=== PATIENT | female | born 1990 | race Caucasian/White ===

== ENCOUNTER 2016-04-07 20:30 | Emergency (ER) | payer OTHER, SELFPAY ==
[2016-04-07] MEDS ORDERED: KETOROLAC 30 MG/ML VIAL (J1885) As Ordered ONE (21:52)
[2016-04-07] MEDS ORDERED: METOCLOPRAMIDE INJ 10MG/2ML VIAL (J2765) As Ordered ONE (21:52)
[2016-04-07 21:58] LABS: BASO % 0.3 % (0.0-1.0); EOS # 0.1 K/mm3 (0.0-0.50); EOS % 1.4 % (0.0-3.0); LARGE UNSTAINED CELL # 0.2 K/mm3 (0.0-0.4); LARGE UNSTAINED CELL % 2.2 % (0.0-4.0); LYMPH # 2.7 K/mm3 (1.5-6.5); MEAN CORPUSCULAR HEMOGLOBIN 25.7 pg (27.0-33.0); MEAN CORPUSCULAR HGB CONC 32.2 g/dl (32.0-36.5); MEAN CORPUSCULAR VOLUME 79.8 fl (80.0-96.0); MONO # 0.4 K/mm3 (0.0-0.8); MONO % 4.4 % (0.0-5.0); NEUTROPHILS # 5.8 K/mm3 (1.8-7.7); NEUTROPHILS % 62.8 % (36.0-66.0); PLATELET COUNT, AUTOMATED 227 k/mm3 (150-450); RED CELL DISTRIBUTION WIDTH 15.5 % (11.5-14.5); WHITE BLOOD COUNT 9.3 K/mm3 (4.0-10.0)
[2016-04-07 22:05] LABS: INR 1.05
[2016-04-07 22:26] LABS: ALBUMIN 3.8 GM/DL (3.2-5.2); ALBUMIN/GLOBULIN RATIO 0.95 (1.00-1.93); ALKALINE PHOSPHATASE 84 U/L (45-117); ALT/SGPT 24 U/L (12-78); AMYLASE 43 U/L (25-115); ANION GAP 9 MEQ/L (8-16); AST/SGOT 16 U/L (15-37); BILIRUBIN,DIRECT < 0.1 MG/DL (0.0-0.2); BILIRUBIN,TOTAL 0.2 MG/DL (0.2-1.0); BLOOD UREA NITROGEN 12 MG/DL (7-18); CALCIUM LEVEL 8.4 MG/DL (8.5-10.1); CARBON DIOXIDE LEVEL 24 MEQ/L (21-32); CHLORIDE LEVEL 109 MEQ/L (98-107); CREATININE FOR GFR 0.75 MG/DL (0.55-1.02); GLOMERULAR FILTRATION RATE > 60.0 (>60); GLUCOSE, FASTING 95 MG/DL (70-105); POTASSIUM SERUM 4.1 MEQ/L (3.5-5.1); SODIUM LEVEL 142 MEQ/L (136-145); TOTAL PROTEIN 7.8 GM/DL (6.4-8.2)
--- NOTE | 2016-04-07 23:28 | EDDOCDS ---
Nurse's Notes [facility] Name: Amelia Castorena Age: 25 yrs Sex: Female : 1990 Arrival Date: 04/07/2016 Time: 20:30 Bed 14 Private MD: Willie Rodriguez Diagnosis: Abdominal and pelvic pain;Chest pain, unspecified Presentation: 04/07 20:36 Presenting complaint: Patient states: chest pain and abdominal pain for 3 weeks on and rs3 off. headache for a month. had been taking Excedrin. symptoms not resolved. Risk factors: the patient reports no vaginal bleeding. Adult Sepsis Screening: The patient does not have new or worsening altered mentation. Patient's respiratory rate is less than 22. Systolic blood pressure is greater than 100. Adult Sepsis Screening: Patient has a qSOFA score of 0- Negative Sepsis Screen. Suicide/Homicide risk assessment- the patient denies having any suicidal and/or homicidal ideations and does not present with any other emotional, behavioral or mental health complaints. 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 Transition of care: patient was not received from another setting of care. 20:36 Acuity: LYNETTE Level 3 rs3 20:36 Method Of Arrival: Walkin/Carried/Asstd rs3 Triage Assessment: 20:39 General: Appears in no apparent distress. Pain: Location: abdomen. HIV screening NA for rs3 this visit Offered previously. GI: Reports lower abdominal pain, upper abd pain. 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 none - PMHx: GERD; - PSHx: Cholecystectomy; Cesearean Section; Tubal ligation; oral surgery; - Social history: Smoking status: Patient states was never smoker of tobacco. No barriers to communication noted, The patient speaks fluent Palauan. - Family history: Not pertinent. - : The pt / caregiver states he / she is not on anticoagulants. Home medication list is obtained from the patient. - Exposure Risk Screening:: None identified. Screenin:26 Screening information is obtained from the patient. Fall risk: No risks identified. tm5 Assistance ADL's: requires no assistance with activities of daily living. Abuse/DV Screen: The patient / caregiver reports he/she is: not in a situation that causes fear, pain or injury. Nutritional screening: No deficits noted. Advance Directives: Currently, there is no health care proxy. There is no active DNR order. home support is adequate. Assessment: 22:17 Adult Sepsis Screening: The patient does not have new or worsening altered mentation. lf1 Patient's respiratory rate is less than 22. Systolic blood pressure is greater than 100. Patient has a qSOFA score of 0- Negative Sepsis Screen. General: Appears in no apparent distress, Behavior is cooperative. Pain: Location: abdomen Pain currently is 6 out of 10 on a pain scale. Neurological: Level of Consciousness is awake, alert, Oriented to person, place, time. EENT: No deficits noted. Respiratory: Respiratory effort is even, unlabored, Breath sounds are clear bilaterally. GI: Abdomen is obese, Bowel sounds present X 4 quads. Abd is soft and non tender Abd is non tender. Derm: Skin is normal. 23:26 Reassessment: Patient appears in no apparent distress at this time. Patient denies pain tm5 at this time. Patient states feeling better. Patient states symptoms have improved. Vital Signs: 20:32 BP 144 / 64; Pulse 77; Resp 18 S; Temp 96.3(O); Pulse Ox 100% on R/A; Weight 90.72 kg gr2 (R); Height 5 ft. 2 in. (157.48 cm) (R); Pain 5/10; 21:50 BP 131 / 84 (auto/); lf1 21:53 Pulse 72 MON; Pulse Ox 98% ; lf1 22:05 BP 132 / 79 (auto/); lf1 22:05 Pulse 72 MON; Pulse Ox 99% ; lf1 22:17 Pulse 70 MON; Resp 18; Pulse Ox 99% ; Pain 6/10; lf1 23:26 BP 120 / 68; Pulse 81; Resp 20; Temp 98.3(O); Pulse Ox 96% on R/A; Pain 0/10; tm5 20:32 Body Mass Index 36.58 (90.72 kg, 157.48 cm) gr2 Vitals: 20:32 Log In Time: April 07, 2016 at 20:32. gr2 ED Course: 20:32 Patient visited by Abida Bloom. gr2 20:32 Willie Rodriguez is Private Physician. gr2 20:32 Patient moved to Waiting gr2 20:33 Patient visited by Abida Bloom. gr2 20:33 Patient moved to Pre RCE gr2 20:38 Triage Initiated rs3 20:49 Shannon Paz,JULIA is Primary Nurse. ld5 20:49 Dev[facility] Solares [facility]NP [facility]. ke 20:49 Patient visited by Devendra Solares FNP. ke 20:49 Patient visited by Devendra Solares FNP. ke 20:49 Patient moved to 14 ld5 21:44 Patient visited by Priti Garrido RN. lf1 21:44 Inserted saline lock: 20 gauge in right forearm and blood collected. The patient lf1 tolerated the procedure well. Labs drawn. (by ED staff). Sent per order to lab. 21:44 Missed attempts: 20 gauge X 1 in left forearm. lf1 21:45 Amylase Sent. lf1 21:45 Basic Metabolic Profile Sent. lf1 21:45 CBC with Diff Sent. lf1 21:45 Cardiac Injury Profile Sent. lf1 21:45 Lipase Sent. lf1 21:45 Liver Profile Sent. lf1 21:45 Prothrombin Time Profile\E\INR Sent. lf1 21:45 Troponin Sent. lf1 21:49 EKG done. (by ED staff). Reviewed by Devendra TANNER. jmv 21:50 Patient visited by Ryland Altamirano PCA. jmv 21:54 Patient visited by Ryland Altamirano PCA. jmv 21:54 Pt greeted and oriented to ED. Patient advised of names of staff involved in care, [facility] location of call [place], wait times and NPO status. Accompanied by Significant Other, Patient has correct armband on for positive identification. Placed in gown. Bed in low position. Call light in reach. Side rails up X2. water treatment specialist on. Pulse ox on. NIBP on. 22:20 Patient visited by Priti Garrido RN. lf1 22:42 Willie Rodriguez is Referral Physician. ke 22:45 Primary Nurse role handed off by Shannon Paz,JULIA mcp 22:53 [facility] Payment Agreement was scanned into [employer] and attached to record. zo 23:26 Patient visited by Corine Pratt RN. tm5 23:26 The patient / caregiver is instructed regarding the plan of care and ED course. tm5 23:26 Discontinued lock intact, bleeding controlled, pressure dressing applied, No tm5 redness/swelling at site. No procedures done that require assistance. Administered Medications: 22:06 Drug: NS 0.9% 1000 ml [sodium chloride 0.9 % intravenous solution] Route: IV; Rate: tm5 bolus; Site: right forearm; 22:06 Drug: Metoclopramide 10 mg [metoclopramide 5 mg/mL injection solution] Route: IV; Rate: tm5 40 mg/hr; Infused Over: 15 mins; Site: right forearm; 22:07 Drug: ketorolac 30 mg [ketorolac 30 mg/mL (1 mL) injection solution (1 mL)] Route: IVP; tm5 Site: right forearm; Order Results: Lab Order: Amylase; SPEC'M 04/07/16 21:43 Test: AMYLASE; Value: 43; Range: 25-115; Units: U/L; Status: F Lab Order: Basic Metabolic Profile; SPEC'M 04/07/16 21:43 Test: GLUCOSE, FASTING; Value: 95; Range: 70-105; Units: MG/DL; Status: F Test: BLOOD UREA NITROGEN; Value: 12; Range: 7-18; Units: MG/DL; Status: F Test: CREATININE FOR GFR; Value: 0.75; Range: 0.55-1.02; Units: MG/DL; Status: F Test: GLOMERULAR FILTRATION RATE; Value: > 60.0; Range: >60; Status: F Test: SODIUM LEVEL; Value: 142; Range: 136-145; Units: MEQ/L; Status: F Test: POTASSIUM SERUM; Value: 4.1; Range: 3.5-5.1; Units: MEQ/L; Status: F Test: CHLORIDE LEVEL; Value: 109; Range: 98-107; Abnormal: Above high normal; Units: MEQ/L; Status: F Test: CARBON DIOXIDE LEVEL; Value: 24; Range: 21-32; Units: MEQ/L; Status: F Test: ANION GAP; Value: 9; Range: 8-16; Units: MEQ/L; Status: F Test: CALCIUM LEVEL; Value: 8.4; Range: 8.5-10.1; Abnormal: Below low normal; Units: MG/DL; Status: F Test Note: ; Units are mL/min/1.73 m2 Chronic Kidney Disease Staging per NKF: Stage I & II GFR >=60 Normal to Mildly Decreased Stage III GFR 30-59 Moderately Decreased Stage IV GFR 15-29 Severely Decreased Stage V GFR <15 Very Little GFR Left ESRD GFR <15 on CALENDER MACHINE OPERATOR Lab Order: CBC with Diff; PANFILO'Ruben 04/07/16 21:43 Test: WHITE BLOOD COUNT; Value: 9.3; Range: 4.0-10.0; Units: K/mm3; Status: F Test: RED BLOOD COUNT; Value: 4.66; Range: 4.00-5.40; Units: M/mm3; Status: F Test: HEMOGLOBIN; Value: 12.0; Range: 12.0-16.0; Units: g/dl; Status: F Test: HEMATOCRIT; Value: 37.2; Range: 36.0-47.0; Units: %; Status: F Test: MEAN CORPUSCULAR VOLUME; Value: 79.8; Range: 80.0-96.0; Abnormal: Below low normal; Units: fl; Status: F Test: MEAN CORPUSCULAR HEMOGLOBIN; Value: 25.7; Range: 27.0-33.0; Abnormal: Below low normal; Units: pg; Status: F Test: MEAN CORPUSCULAR HGB CONC; Value: 32.2; Range: 32.0-36.5; Units: g/dl; Status: F Test: RED CELL DISTRIBUTION WIDTH; Value: 15.5; Range: 11.5-14.5; Abnormal: Above high normal; Units: %; Status: F Test: PLATELET COUNT, AUTOMATED; Value: 227; Range: 150-450; Units: k/mm3; Status: F Test: NEUTROPHILS %; Value: 62.8; Range: 36.0-66.0; Units: %; Status: F Test: LYMPH %; Value: 29.0; Range: 24.0-44.0; Units: %; Status: F Test: MONO %; Value: 4.4; Range: 0.0-5.0; Units: %; Status: F Test: EOS %; Value: 1.4; Range: 0.0-3.0; Units: %; Status: F Test: BASO %; Value: 0.3; Range: 0.0-1.0; Units: %; Status: F Test: LARGE UNSTAINED CELL %; Value: 2.2; Range: 0.0-4.0; Units: %; Status: F Test: NEUTROPHILS #; Value: 5.8; Range: 1.8-7.7; Units: K/mm3; Status: F Test: LYMPH #; Value: 2.7; Range: 1.5-6.5; Units: K/mm3; Status: F Test: MONO #; Value: 0.4; Range: 0.0-0.8; Units: K/mm3; Status: F Test: EOS #; Value: 0.1; Range: 0.0-0.50; Units: K/mm3; Status: F Test: BASO #; Value: 0.0; Range: 0.0-0.2; Units: K/mm3; Status: F Test: LARGE UNSTAINED CELL #; Value: 0.2; Range: 0.0-0.4; Units: K/mm3; Status: F Lab Order: Cardiac Injury Profile; [facility] 04/07/16 21:43 Test: CPK CREATINE PHOSPHOKINASE; Value: 114; Range: 26-192; Units: U/L; Status: F Test: CK-MB VALUE MASS; Value: 1.0; Range: 0.0-3.6; Units: NG/ML; Status: F Test: MB/CK RELATIVE INDEX; Value: 0.87; Range: < OR =4; Status: F Test Note: ; DIAGNOSIS CRITERIA MMB ng/ml Relative Index (RI) NON-AMI < or = 5 N/A AKBAR ZONE > 5 < or = 4 AMI > 5 > 4 Lab Order: Lipase; [facility]' 04/07/16 21:43 Test: LIPASE; Value: 116; Range: 73-393; Units: U/L; Status: F Lab Order: Liver Profile; [facility] 04/07/16 21:43 Test: AST/SGOT; Value: 16; Range: 15-37; Units: U/L; Status: F Test: ALT/SGPT; Value: 24; Range: 12-78; Units: U/L; Status: F Test: ALKALINE PHOSPHATASE; Value: 84; Range: 45-117; Units: U/L; Status: F Test: BILIRUBIN,TOTAL; Value: 0.2; Range: 0.2-1.0; Units: MG/DL; Status: F Test: BILIRUBIN,DIRECT; Value: < 0.1; Range: 0.0-0.2; Units: MG/DL; Status: F Test: TOTAL PROTEIN; Value: 7.8; Range: 6.4-8.2; Units: GM/DL; Status: F Test: ALBUMIN; Value: 3.8; Range: 3.2-5.2; Units: GM/DL; Status: F Test: ALBUMIN/GLOBULIN RATIO; Value: 0.95; Range: 1.00-1.93; Abnormal: Below low normal; Status: F Lab Order: Prothrombin Time Profile\E\INR; SPEC'M 04/07/16 21:43 Test: PROTHROMBIN TIME; Value: 13.8; Range: 12.3-14.5; Units: SECONDS; Status: F Test: INR; Value: 1.05; Status: F Test Note: ; THERAPUTIC HUMAN INR VALUES INDICATIONS NORMAL RANGES PROPHYLAXIS/TREATMENT OF: VENOUS THROMBOSIS 2.0-3.0 PULMONARY EMBOLISM 2.0-3.0 PREVENTION OF SYSTEMIC EMBOLISM FROM: TISSUE HEART VALVES 2.0-3.0 ACUTE MYOCARDIAL INFARCTION 2.0-3.0 VALVULAR HEART DISEASE 2.0-3.0 ATRIAL FIBRILLATION 2.0-3.0 MECHANICAL VALVES(HIGH RISK) 2.5-3.5 RECURRENT MYOCARDIAL INFARCTION 2.5-3.5 Lab Order: Troponin; SPEC'M 04/07/16 21:43 Test: TROPONIN I; Value: < 0.02; Range: < 0.10; Units: NG/ML; Status: F Test Note: ; Troponin I Reference Interval for [place] LOCI: 99th Percentile= 0.00-0.045 ng/ml Risk Stratification: <= 0.10 ng/ml Decreased Risk for Adverse Clinical Events. 0.10-1.50 ng/ml Increased Risk for Adverse Clinical Events. Evaluation of additional criterion and/or repeat testing in 2-6 hours is suggested to rule out myocardial damage. >= 1.50 ng/ml Indicative of Myocardial Injury. Outcome: 22:43 Discharge ordered by Provider. 23:26 Discharge Assessment: Patient awake, alert and oriented x 3. No cognitive and/or tm5 functional deficits noted. Patient verbalized understanding of disposition instructions. patient administered narcotics - no. The following High Risk Discharge criteria are identified: None. Discharged to home ambulatory, with significant other. Condition: good Condition: stable Condition: improved. Discharge instructions given to patient, Instructed on discharge instructions, follow up and referral plans. Demonstrated understanding of instructions, Pt was receptive of discharge instructions/ teaching. No special radiology studies were completed. Property :Personal belongings accompany Pt. 23:28 Patient left the ED. tm5 Signatures: Darlyn White, RN RN mcp Devendra Solares, GUN FITTER GUN FITTER Yenny Guadalupe Lisa,RN RN lf1 Hayley Tobin,RN RN rs3 Shaista Raines,RN RN ld5 Abida Bloom gr2 Ryland Altamirano, ALUMINUM CAN COLLECTOR ALUMINUM CAN COLLECTOR Corine Garcia,RN RN tm5 MTDD
--- NOTE | 2016-04-07 23:28 | EDDOCDS ---
Physician Documentation [facility] Name: Amelia Castorena Age: 25 yrs Sex: Female : 1990 Arrival Date: 04/07/2016 Time: 20:30 Bed 14 Private MD: Willie Rodriguez Disposition: 04/07/16 22:43 Discharged to Home/Self Care. Impression: Abdominal and pelvic pain, Chest pain, unspecified. - Condition is Stable. - Discharge Instructions: Abdominal Pain, Adult, Nonspecific Chest Pain. - Medication Reconciliation, Local Pharmacy Hours form. - Follow up: Willie Rodriguez; When: 4 - 5 days; Reason: Further diagnostic work-up, Continuance of care. - Problem is an ongoing problem. - Symptoms are unchanged. Historical: - Allergies: Amoxicillin (Upset stomach); - Home Meds: 1. none - PMHx: GERD; - PSHx: Cholecystectomy; Cesearean Section; Tubal ligation; oral surgery; - Social history: Smoking status: Patient states was never smoker of tobacco. No barriers to communication noted, The patient speaks fluent Czech. - Family history: Not pertinent. - : The pt / caregiver states he / she is not on anticoagulants. Home medication list is obtained from the patient. - Exposure Risk Screening:: None identified. 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 2 in. (157.48 cm) (R); Pain 5/10; 21:50 BP 131 / 84 (auto/); lf1 21:53 Pulse 72 MON; Pulse Ox 98% ; lf1 22:05 BP 132 / 79 (auto/); lf1 22:05 Pulse 72 MON; Pulse Ox 99% ; lf1 22:17 Pulse 70 MON; Resp 18; Pulse Ox 99% ; Pain 6/10; lf1 23:26 BP 120 / 68; Pulse 81; Resp 20; Temp 98.3(O); Pulse Ox 96% on R/A; Pain 0/10; tm5 20:32 Body Mass Index 36.58 (90.72 kg, 157.48 cm) gr2 MDM: 20:55 NS 0.9% 1000 ml IV at bolus once ordered. ke 20:55 ketorolac 30 mg IVP once ordered. ke 20:55 IV Saline Lock ordered. ke 20:55 Undress patient appropriately for examination ordered. ke 20:55 Metoclopramide 10 mg IV at 40 mg/hr once over 15 mins ordered. ke 20:56 Amylase Ordered. EDMS 20:56 Basic Metabolic Profile Ordered. EDMS 20:56 CBC with Diff Ordered. EDMS 20:56 Cardiac Injury Profile Ordered. EDMS 20:56 Lipase Ordered. EDMS 20:56 Liver Profile Ordered. EDMS 20:56 Prothrombin Time Profile\E\INR Ordered. EDMS 20:56 Troponin Ordered. EDMS 20:56 Abdomen, Flat\E\Upright,PA Chest Ordered. EDMS 20:57 NOTHING BY MOUTH+DIET ordered. EDMS 21:02 ECG WITH READING ER PHYS+CARDIAG ordered. EDMS 22:31 Basic Metabolic Profile Reviewed. ke 22:31 CBC with Diff Reviewed. ke 22:31 Liver Profile Reviewed. ke 22:31 Amylase Reviewed. ke 22:31 Cardiac Injury Profile Reviewed. ke 22:31 Lipase Reviewed. ke 22:31 Prothrombin Time Profile\E\INR Reviewed. ke 22:31 Troponin Reviewed. ke 22:51 Financial registration complete. zo 22:53 [facility] Payment Agreement was scanned into [employer] and attached to record. zo Administered Medications: 22:06 Drug: NS 0.9% 1000 ml [sodium chloride 0.9 % intravenous solution] Route: IV; Rate: tm5 bolus; Site: right forearm; 22:06 Drug: Metoclopramide 10 mg [metoclopramide 5 mg/mL injection solution] Route: IV; Rate: tm5 40 mg/hr; Infused Over: 15 mins; Site: right forearm; 22:07 Drug: ketorolac 30 mg [ketorolac 30 mg/mL (1 mL) injection solution (1 mL)] Route: IVP; tm5 Site: right forearm; Signatures: Dispatcher [employer] EDMS Devendra Solares, DIRECTOR OF PARKS AND RECREATION DIRECTOR OF PARKS AND RECREATION Yenny Guadalupe LisaRN RN lf1 Hayley TobinRN RN rs3 Corine PrattRN RN tm5 The chart was reviewed and I authenticate all verbal orders and agree with the evaluation and treatment provided.Attachments: 22:53 [facility] Payment Agreement zo MTDD
--- NOTE | 2016-04-09 15:31 | ECGEPIP ---
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
--- NOTE | 2016-04-10 00:29 | EDDOCDS ---
Physician Documentation [facility] Name: Amelia Castorena Age: 25 yrs Sex: Female : 1990 Arrival Date: 04/07/2016 Time: 20:30 Bed 14 Private MD: Willie Rodriguez Disposition: 04/07/16 22:43 Discharged to Home/Self Care. Impression: Abdominal and pelvic pain, Chest pain, unspecified. - Condition is Stable. - Discharge Instructions: Abdominal Pain, Adult, Nonspecific Chest Pain. - Medication Reconciliation, Local Pharmacy Hours form. - Follow up: Willie Rodriguez; When: 4 - 5 days; Reason: Further diagnostic work-up, Continuance of care. - Problem is an ongoing problem. - Symptoms are unchanged. Historical: - Allergies: Amoxicillin (Upset stomach); - Home Meds: 1. none - PMHx: GERD; - PSHx: Cholecystectomy; Cesearean Section; Tubal ligation; oral surgery; - Social history: Smoking status: Patient states was never smoker of tobacco. No barriers to communication noted, The patient speaks fluent Bengali. - Family history: Not pertinent. - : The pt / caregiver states he / she is not on anticoagulants. Home medication list is obtained from the patient. - Exposure Risk Screening:: None identified. 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 2 in. (157.48 cm) (R); Pain 5/10; 21:50 BP 131 / 84 (auto/); lf1 21:53 Pulse 72 MON; Pulse Ox 98% ; lf1 22:05 BP 132 / 79 (auto/); lf1 22:05 Pulse 72 MON; Pulse Ox 99% ; lf1 22:17 Pulse 70 MON; Resp 18; Pulse Ox 99% ; Pain 6/10; lf1 23:26 BP 120 / 68; Pulse 81; Resp 20; Temp 98.3(O); Pulse Ox 96% on R/A; Pain 0/10; tm5 20:32 Body Mass Index 36.58 (90.72 kg, 157.48 cm) gr2 MDM: 20:55 NS 0.9% 1000 ml IV at bolus once ordered. ke 20:55 ketorolac 30 mg IVP once ordered. ke 20:55 IV Saline Lock ordered. ke 20:55 Undress patient appropriately for examination ordered. ke 20:55 Metoclopramide 10 mg IV at 40 mg/hr once over 15 mins ordered. ke 20:56 Amylase Ordered. EDMS 20:56 Basic Metabolic Profile Ordered. EDMS 20:56 CBC with Diff Ordered. EDMS 20:56 Cardiac Injury Profile Ordered. EDMS 20:56 Lipase Ordered. EDMS 20:56 Liver Profile Ordered. EDMS 20:56 Prothrombin Time Profile\E\INR Ordered. EDMS 20:56 Troponin Ordered. EDMS 20:56 Abdomen, Flat\E\Upright,PA Chest Ordered. EDMS 20:57 NOTHING BY MOUTH+DIET ordered. EDMS 21:02 ECG WITH READING ER PHYS+CARDIAG ordered. EDMS 22:31 Basic Metabolic Profile Reviewed. ke 22:31 CBC with Diff Reviewed. ke 22:31 Liver Profile Reviewed. ke 22:31 Amylase Reviewed. ke 22:31 Cardiac Injury Profile Reviewed. ke 22:31 Lipase Reviewed. ke 22:31 Prothrombin Time Profile\E\INR Reviewed. ke 22:31 Troponin Reviewed. ke 22:51 Financial registration complete. zo 22:53 [facility] Payment Agreement was scanned into [employer] and attached to record. zo 04/08 08:02 T-Sheet-- Draft Copy was scanned into [employer] and attached to record. gb 08:02 ECG/EKG was scanned into [employer] and attached to record. gb Administered Medications: 04/07 22:06 Drug: NS 0.9% 1000 ml [sodium chloride 0.9 % intravenous solution] Route: IV; Rate: tm5 bolus; Site: right forearm; 22:06 Drug: Metoclopramide 10 mg [metoclopramide 5 mg/mL injection solution] Route: IV; Rate: tm5 40 mg/hr; Infused Over: 15 mins; Site: right forearm; 22:07 Drug: ketorolac 30 mg [ketorolac 30 mg/mL (1 mL) injection solution (1 mL)] Route: IVP; tm5 Site: right forearm; Signatures: Dispatcher [employer] EDMS Evon Chung, Reg Reg Espinoza Morinl, ROADSIDE MECHANIC ROADSIDE MECHANIC Yenny Guadalupe Lisa,RN RN lf1 Hayley Tobin,RN RN rs3 Corine Pratt,RN RN tm5 The chart was reviewed and I authenticate all verbal orders and agree with the evaluation and treatment provided.Attachments: 22:53 [facility] Payment Agreement zo 04/08 08:02 T-Sheet-- Draft Copy gb 08:02 ECG/EKG gb Chart Complete MTDD
--- NOTE | 2016-04-10 00:29 | EDDOCDS ---
Physician Documentation [facility] Name: Amelia Castorena Age: 25 yrs Sex: Female : 1990 Arrival Date: 04/07/2016 Time: 20:30 Bed 14 Private MD: Willie Rodriguez Disposition: 04/07/16 22:43 Discharged to Home/Self Care. Impression: Abdominal and pelvic pain, Chest pain, unspecified. - Condition is Stable. - Discharge Instructions: Abdominal Pain, Adult, Nonspecific Chest Pain. - Medication Reconciliation, Local Pharmacy Hours form. - Follow up: Willie Rodriguez; When: 4 - 5 days; Reason: Further diagnostic work-up, Continuance of care. - Problem is an ongoing problem. - Symptoms are unchanged. Historical: - Allergies: Amoxicillin (Upset stomach); - Home Meds: 1. none - PMHx: GERD; - PSHx: Cholecystectomy; Cesearean Section; Tubal ligation; oral surgery; - Social history: Smoking status: Patient states was never smoker of tobacco. No barriers to communication noted, The patient speaks fluent Arabic. - Family history: Not pertinent. - : The pt / caregiver states he / she is not on anticoagulants. Home medication list is obtained from the patient. - Exposure Risk Screening:: None identified. LOCK FITTER: 04/07 20:39 LMP 03/31/2016 rs3 Vital Signs: 20:32 BP 144 / 64; Pulse 77; Resp 18 S; Temp 96.3(O); Pulse Ox 100% on R/A; Weight 90.72 kg / gr2 200 lbs (R); Height 5 ft. 2 in. (157.48 cm) (R); Pain 5/10; 21:50 BP 131 / 84 (auto/); lf1 21:53 Pulse 72 MON; Pulse Ox 98% ; lf1 22:05 BP 132 / 79 (auto/); lf1 22:05 Pulse 72 MON; Pulse Ox 99% ; lf1 22:17 Pulse 70 MON; Resp 18; Pulse Ox 99% ; Pain 6/10; lf1 23:26 BP 120 / 68; Pulse 81; Resp 20; Temp 98.3(O); Pulse Ox 96% on R/A; Pain 0/10; tm5 20:32 Body Mass Index 36.58 (90.72 kg, 157.48 cm) gr2 MDM: 20:55 NS 0.9% 1000 ml IV at bolus once ordered. ke 20:55 ketorolac 30 mg IVP once ordered. ke 20:55 IV Saline Lock ordered. ke 20:55 Undress patient appropriately for examination ordered. ke 20:55 Metoclopramide 10 mg IV at 40 mg/hr once over 15 mins ordered. ke 20:56 Amylase Ordered. EDMS 20:56 Basic Metabolic Profile Ordered. EDMS 20:56 CBC with Diff Ordered. EDMS 20:56 Cardiac Injury Profile Ordered. EDMS 20:56 Lipase Ordered. EDMS 20:56 Liver Profile Ordered. EDMS 20:56 Prothrombin Time Profile\E\INR Ordered. EDMS 20:56 Troponin Ordered. EDMS 20:56 Abdomen, Flat\E\Upright,PA Chest Ordered. EDMS 20:57 NOTHING BY MOUTH+DIET ordered. EDMS 21:02 ECG WITH READING ER PHYS+CARDIAG ordered. EDMS 22:31 Basic Metabolic Profile Reviewed. ke 22:31 CBC with Diff Reviewed. ke 22:31 Liver Profile Reviewed. ke 22:31 Amylase Reviewed. ke 22:31 Cardiac Injury Profile Reviewed. ke 22:31 Lipase Reviewed. ke 22:31 Prothrombin Time Profile\E\INR Reviewed. ke 22:31 Troponin Reviewed. ke 22:51 Financial registration complete. zo 22:53 [facility] Payment Agreement was scanned into [employer] and attached to record. zo 04/08 08:02 T-Sheet-- Draft Copy was scanned into [employer] and attached to record. gb 08:02 ECG/EKG was scanned into [employer] and attached to record. gb Administered Medications: 04/07 22:06 Drug: NS 0.9% 1000 ml [sodium chloride 0.9 % intravenous solution] Route: IV; Rate: tm5 bolus; Site: right forearm; 22:06 Drug: Metoclopramide 10 mg [metoclopramide 5 mg/mL injection solution] Route: IV; Rate: tm5 40 mg/hr; Infused Over: 15 mins; Site: right forearm; 22:07 Drug: ketorolac 30 mg [ketorolac 30 mg/mL (1 mL) injection solution (1 mL)] Route: IVP; tm5 Site: right forearm; Signatures: Dispatcher [employer] EDMS Evon Chung, Reg Reg Espinoza Morinl, ROAD EQUIPMENT OPERATOR ROAD EQUIPMENT OPERATOR Yenny Guadalupe Lisa,RN RN lf1 Hayley Tobin,RN RN rs3 Corine Pratt,RN RN tm5 The chart was reviewed and I authenticate all verbal orders and agree with the evaluation and treatment provided.Attachments: 22:53 [facility] Payment Agreement zo 04/08 08:02 T-Sheet-- Draft Copy gb 08:02 ECG/EKG gb Chart Complete MTDD
--- NOTE | 2016-04-10 00:30 | EDDOCDS ---
Nurse's Notes [facility] Name: Amelia Castorena Age: 25 yrs Sex: Female : 1990 Arrival Date: 04/07/2016 Time: 20:30 Bed 14 Private MD: Willie Rodriguez Diagnosis: Abdominal and pelvic pain;Chest pain, unspecified Presentation: 04/07 20:36 Presenting complaint: Patient states: chest pain and abdominal pain for 3 weeks on and rs3 off. headache for a month. had been taking Excedrin. symptoms not resolved. Risk factors: the patient reports no vaginal bleeding. Adult Sepsis Screening: The patient does not have new or worsening altered mentation. Patient's respiratory rate is less than 22. Systolic blood pressure is greater than 100. Adult Sepsis Screening: Patient has a qSOFA score of 0- Negative Sepsis Screen. Suicide/Homicide risk assessment- the patient denies having any suicidal and/or homicidal ideations and does not present with any other emotional, behavioral or mental health complaints. Status: Patient is not a direct service worker or dependent. Transition of care: patient was not received from another setting of care. 20:36 Acuity: LYNETTE Level 3 rs3 20:36 Method Of Arrival: Walkin/Carried/Asstd rs3 Triage Assessment: 20:39 General: Appears in no apparent distress. Pain: Location: abdomen. HIV screening NA for rs3 this visit Offered previously. GI: Reports lower abdominal pain, upper abd pain. 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 none - PMHx: GERD; - PSHx: Cholecystectomy; Cesearean Section; Tubal ligation; oral surgery; - Social history: Smoking status: Patient states was never smoker of tobacco. No barriers to communication noted, The patient speaks fluent British. - Family history: Not pertinent. - : The pt / caregiver states he / she is not on anticoagulants. Home medication list is obtained from the patient. - Exposure Risk Screening:: None identified. Screenin:26 Screening information is obtained from the patient. Fall risk: No risks identified. tm5 Assistance ADL's: requires no assistance with activities of daily living. Abuse/DV Screen: The patient / caregiver reports he/she is: not in a situation that causes fear, pain or injury. Nutritional screening: No deficits noted. Advance Directives: Currently, there is no health care proxy. There is no active DNR order. home support is adequate. Assessment: 22:17 Adult Sepsis Screening: The patient does not have new or worsening altered mentation. lf1 Patient's respiratory rate is less than 22. Systolic blood pressure is greater than 100. Patient has a qSOFA score of 0- Negative Sepsis Screen. General: Appears in no apparent distress, Behavior is cooperative. Pain: Location: abdomen Pain currently is 6 out of 10 on a pain scale. Neurological: Level of Consciousness is awake, alert, Oriented to person, place, time. EENT: No deficits noted. Respiratory: Respiratory effort is even, unlabored, Breath sounds are clear bilaterally. GI: Abdomen is obese, Bowel sounds present X 4 quads. Abd is soft and non tender Abd is non tender. Derm: Skin is normal. 23:26 Reassessment: Patient appears in no apparent distress at this time. Patient denies pain tm5 at this time. Patient states feeling better. Patient states symptoms have improved. Vital Signs: 20:32 BP 144 / 64; Pulse 77; Resp 18 S; Temp 96.3(O); Pulse Ox 100% on R/A; Weight 90.72 kg gr2 (R); Height 5 ft. 2 in. (157.48 cm) (R); Pain 5/10; 21:50 BP 131 / 84 (auto/); lf1 21:53 Pulse 72 MON; Pulse Ox 98% ; lf1 22:05 BP 132 / 79 (auto/); lf1 22:05 Pulse 72 MON; Pulse Ox 99% ; lf1 22:17 Pulse 70 MON; Resp 18; Pulse Ox 99% ; Pain 6/10; lf1 23:26 BP 120 / 68; Pulse 81; Resp 20; Temp 98.3(O); Pulse Ox 96% on R/A; Pain 0/10; tm5 20:32 Body Mass Index 36.58 (90.72 kg, 157.48 cm) gr2 Vitals: 20:32 Log In Time: April 07, 2016 at 20:32. gr2 ED Course: 20:32 Patient visited by Abida Bloom. gr2 20:32 Willie Rodriguez is Private Physician. gr2 20:32 Patient moved to Waiting gr2 20:33 Patient visited by Abida Bloom. gr2 20:33 Patient moved to Pre RCE gr2 20:38 Triage Initiated rs3 20:49 Shannon Paz,JULIA is Primary Nurse. ld5 20:49 [facility] ke 20:49 Patient visited by Devendra Solares FNP. ke 20:49 Patient visited by Devendra Solares FNP. ke 20:49 Patient moved to 14 ld5 21:44 Patient visited by Priti Garrido RN. lf1 21:44 Inserted saline lock: 20 gauge in right forearm and blood collected. The patient lf1 tolerated the procedure well. Labs drawn. (by ED staff). Sent per order to lab. 21:44 Missed attempts: 20 gauge X 1 in left forearm. lf1 21:45 Amylase Sent. lf1 21:45 Basic Metabolic Profile Sent. lf1 21:45 CBC with Diff Sent. lf1 21:45 Cardiac Injury Profile Sent. lf1 21:45 Lipase Sent. lf1 21:45 Liver Profile Sent. lf1 21:45 Prothrombin Time Profile\E\INR Sent. lf1 21:45 Troponin Sent. lf1 21:49 EKG done. (by ED staff). Reviewed by Devendra TANNER. jmv 21:50 Patient visited by Ryland Altamirano PCA. jmv 21:54 Patient visited by Ryland Altamirano PCA. jmv 21:54 Pt greeted and oriented to ED. Patient advised of names of staff involved in care, [facility] location of call [place], wait times and NPO status. Accompanied by Significant Other, Patient has correct armband on for positive identification. Placed in gown. Bed in low position. Call light in reach. Side rails up X2. lard bleacher on. Pulse ox on. NIBP on. 22:20 Patient visited by Priti Garrido RN. lf1 22:42 Willie Rodriguez is Referral Physician. ke 22:45 Primary Nurse role handed off by Shannon Paz,JULIA mcp 22:53 [facility] Payment Agreement was scanned into [employer] and attached to record. zo 23:26 Patient visited by Corine Pratt RN. tm5 23:26 The patient / caregiver is instructed regarding the plan of care and ED course. tm5 23:26 Discontinued lock intact, bleeding controlled, pressure dressing applied, No tm5 redness/swelling at site. No procedures done that require assistance. 04/08 08:02 T-Sheet-- Draft Copy was scanned into [employer] and attached to record. gb 08: ECG/EKG was scanned into [employer] and attached to record. gb 04/09 15:31 EKG-ADULT Returned. EDMS Administered Medications: 04/07 22:06 Drug: NS 0.9% 1000 ml [sodium chloride 0.9 % intravenous solution] Route: IV; Rate: tm5 bolus; Site: right forearm; 22:06 Drug: Metoclopramide 10 mg [metoclopramide 5 mg/mL injection solution] Route: IV; Rate: tm5 40 mg/hr; Infused Over: 15 mins; Site: right forearm; 22:07 Drug: ketorolac 30 mg [ketorolac 30 mg/mL (1 mL) injection solution (1 mL)] Route: IVP; tm5 Site: right forearm; Order Results: Lab Order: Amylase; SPEC'M 04/07/16 21:43 Test: AMYLASE; Value: 43; Range: 25-115; Units: U/L; Status: F Lab Order: Basic Metabolic Profile; SPEC'M 04/07/16 21:43 Test: GLUCOSE, FASTING; Value: 95; Range: 70-105; Units: MG/DL; Status: F Test: BLOOD UREA NITROGEN; Value: 12; Range: 7-18; Units: MG/DL; Status: F Test: CREATININE FOR GFR; Value: 0.75; Range: 0.55-1.02; Units: MG/DL; Status: F Test: GLOMERULAR FILTRATION RATE; Value: > 60.0; Range: >60; Status: F Test: SODIUM LEVEL; Value: 142; Range: 136-145; Units: MEQ/L; Status: F Test: POTASSIUM SERUM; Value: 4.1; Range: 3.5-5.1; Units: MEQ/L; Status: F Test: CHLORIDE LEVEL; Value: 109; Range: 98-107; Abnormal: Above high normal; Units: MEQ/L; Status: F Test: CARBON DIOXIDE LEVEL; Value: 24; Range: 21-32; Units: MEQ/L; Status: F Test: ANION GAP; Value: 9; Range: 8-16; Units: MEQ/L; Status: F Test: CALCIUM LEVEL; Value: 8.4; Range: 8.5-10.1; Abnormal: Below low normal; Units: MG/DL; Status: F Test Note: ; Units are mL/min/1.73 m2 Chronic Kidney Disease Staging per NKF: Stage I & II GFR >=60 Normal to Mildly Decreased Stage III GFR 30-59 Moderately Decreased Stage IV GFR 15-29 Severely Decreased Stage V GFR <15 Very Little GFR Left ESRD GFR <15 on CATALYST PLANT SUPERVISOR Lab Order: CBC with Diff; SPEC'M 04/07/16 21:43 Test: WHITE BLOOD COUNT; Value: 9.3; Range: 4.0-10.0; Units: K/mm3; Status: F Test: RED BLOOD COUNT; Value: 4.66; Range: 4.00-5.40; Units: M/mm3; Status: F Test: HEMOGLOBIN; Value: 12.0; Range: 12.0-16.0; Units: g/dl; Status: F Test: HEMATOCRIT; Value: 37.2; Range: 36.0-47.0; Units: %; Status: F Test: MEAN CORPUSCULAR VOLUME; Value: 79.8; Range: 80.0-96.0; Abnormal: Below low normal; Units: fl; Status: F Test: MEAN CORPUSCULAR HEMOGLOBIN; Value: 25.7; Range: 27.0-33.0; Abnormal: Below low normal; Units: pg; Status: F Test: MEAN CORPUSCULAR HGB CONC; Value: 32.2; Range: 32.0-36.5; Units: g/dl; Status: F Test: RED CELL DISTRIBUTION WIDTH; Value: 15.5; Range: 11.5-14.5; Abnormal: Above high normal; Units: %; Status: F Test: PLATELET COUNT, AUTOMATED; Value: 227; Range: 150-450; Units: k/mm3; Status: F Test: NEUTROPHILS %; Value: 62.8; Range: 36.0-66.0; Units: %; Status: F Test: LYMPH %; Value: 29.0; Range: 24.0-44.0; Units: %; Status: F Test: MONO %; Value: 4.4; Range: 0.0-5.0; Units: %; Status: F Test: EOS %; Value: 1.4; Range: 0.0-3.0; Units: %; Status: F Test: BASO %; Value: 0.3; Range: 0.0-1.0; Units: %; Status: F Test: LARGE UNSTAINED CELL %; Value: 2.2; Range: 0.0-4.0; Units: %; Status: F Test: NEUTROPHILS #; Value: 5.8; Range: 1.8-7.7; Units: K/mm3; Status: F Test: LYMPH #; Value: 2.7; Range: 1.5-6.5; Units: K/mm3; Status: F Test: MONO #; Value: 0.4; Range: 0.0-0.8; Units: K/mm3; Status: F Test: EOS #; Value: 0.1; Range: 0.0-0.50; Units: K/mm3; Status: F Test: BASO #; Value: 0.0; Range: 0.0-0.2; Units: K/mm3; Status: F Test: LARGE UNSTAINED CELL #; Value: 0.2; Range: 0.0-0.4; Units: K/mm3; Status: F Lab Order: Cardiac Injury Profile; [facility] 04/07/16 21:43 Test: CPK CREATINE PHOSPHOKINASE; Value: 114; Range: 26-192; Units: U/L; Status: F Test: CK-MB VALUE MASS; Value: 1.0; Range: 0.0-3.6; Units: NG/ML; Status: F Test: MB/CK RELATIVE INDEX; Value: 0.87; Range: < OR =4; Status: F Test Note: ; DIAGNOSIS CRITERIA MMB ng/ml Relative Index (RI) NON-AMI < or = 5 N/A AKBAR ZONE > 5 < or = 4 AMI > 5 > 4 Lab Order: Lipase; [facility] 04/07/16 21:43 Test: LIPASE; Value: 116; Range: 73-393; Units: U/L; Status: F Lab Order: Liver Profile; [facility] 04/07/16 21:43 Test: AST/SGOT; Value: 16; Range: 15-37; Units: U/L; Status: F Test: ALT/SGPT; Value: 24; Range: 12-78; Units: U/L; Status: F Test: ALKALINE PHOSPHATASE; Value: 84; Range: 45-117; Units: U/L; Status: F Test: BILIRUBIN,TOTAL; Value: 0.2; Range: 0.2-1.0; Units: MG/DL; Status: F Test: BILIRUBIN,DIRECT; Value: < 0.1; Range: 0.0-0.2; Units: MG/DL; Status: F Test: TOTAL PROTEIN; Value: 7.8; Range: 6.4-8.2; Units: GM/DL; Status: F Test: ALBUMIN; Value: 3.8; Range: 3.2-5.2; Units: GM/DL; Status: F Test: ALBUMIN/GLOBULIN RATIO; Value: 0.95; Range: 1.00-1.93; Abnormal: Below low normal; Status: F Lab Order: Prothrombin Time Profile\E\INR; SPEC'M 04/07/16 21:43 Test: PROTHROMBIN TIME; Value: 13.8; Range: 12.3-14.5; Units: SECONDS; Status: F Test: INR; Value: 1.05; Status: F Test Note: ; THERAPUTIC HUMAN INR VALUES INDICATIONS NORMAL RANGES PROPHYLAXIS/TREATMENT OF: VENOUS THROMBOSIS 2.0-3.0 PULMONARY EMBOLISM 2.0-3.0 PREVENTION OF SYSTEMIC EMBOLISM FROM: TISSUE HEART VALVES 2.0-3.0 ACUTE MYOCARDIAL INFARCTION 2.0-3.0 VALVULAR HEART DISEASE 2.0-3.0 ATRIAL FIBRILLATION 2.0-3.0 MECHANICAL VALVES(HIGH RISK) 2.5-3.5 RECURRENT MYOCARDIAL INFARCTION 2.5-3.5 Lab Order: Troponin; SPEC'M 04/07/16 21:43 Test: TROPONIN I; Value: < 0.02; Range: < 0.10; Units: NG/ML; Status: F Test Note: ; Troponin I Reference Interval for [employer] LOCI: 99th Percentile= 0.00-0.045 ng/ml Risk Stratification: <= 0.10 ng/ml Decreased Risk for Adverse Clinical Events. 0.10-1.50 ng/ml Increased Risk for Adverse Clinical Events. Evaluation of additional criterion and/or repeat testing in 2-6 hours is suggested to rule out myocardial damage. >= 1.50 ng/ml Indicative of Myocardial Injury. Outcome: 22:43 Discharge ordered by Provider. ke 23:26 Discharge Assessment: Patient awake, alert and oriented x 3. No cognitive and/or tm5 functional deficits noted. Patient verbalized understanding of disposition instructions. patient administered narcotics - no. The following High Risk Discharge criteria are identified: None. Discharged to home ambulatory, with significant other. Condition: good Condition: stable Condition: improved. Discharge instructions given to patient, Instructed on discharge instructions, follow up and referral plans. Demonstrated understanding of instructions, Pt was receptive of discharge instructions/ teaching. No special radiology studies were completed. Property :Personal belongings accompany Pt. 23:28 Patient left the ED. tm5 Signatures: Dispatcher [employer] EDMS Darlyn White, RN RN elza Chung, Evon, Reg Reg gb Devendra Solares, PRESENTATION TEAM MEMBER PRESENTATION TEAM MEMBER Yenny Guadalupe Lisa,RN RN lf1 Hayley TobinRN RN rs3 Shaista Raines,RN RN ld5 Abida Bloom gr2 Ryland Altamirano, ROBOTICS SYSTEMS ENGINEER ROBOTICS SYSTEMS ENGINEER Corine Garcia,RN RN tm5 Chart Complete MTDD
--- NOTE | 2016-04-10 08:30 | REP ---
Acute abdominal series three views including PA chest and supine upright abdomen: PA chest: Comparison is 07/07/2015. The lung aguilera are clear. Cardiac size is normal. The valerie, mediastinum, and bony thorax unremarkable. There is no free subdiaphragmatic air. Impression: Negative PA chest. Abdomen, supine upright views: The bowel gas pattern is normal. There are right upper quadrant surgical clips. The skeletal structures and soft tissues are otherwise unremarkable. Impression: Normal bowel gas pattern. Signed by Bay Marc MD 04/08/2016 09:26 A
== END 2016-04-07 23:28 | disposition home or self-care (01) ==
LOC: M ED 20:30
DX: R07.89 Other chest pain (principal); R10.9 Unspecified abdominal pain; K21.9 Gastro-esophageal reflux disease without esophagitis; Z88.0 Allergy status to penicillin
CPT/HCPCS: 36415; 74022; 80048; 80076; 82150; 82550; 82553; 83690; 85025; 85610; 93005; 96374; 96375; 99284; J1885; J2765

== ENCOUNTER 2016-04-23 16:34 | Emergency (ER) | payer OTHER, SELFPAY ==
[2016-04-23] MEDS ORDERED: IBUPROFEN 400 MG TAB As Ordered ONE (17:34)
[2016-04-23] MEDS ORDERED: METHOCARBAMOL 500 MG TAB As Ordered ONE (17:34)
--- NOTE | 2016-04-23 17:40 | EDDOCDS ---
Nurse's Notes [facility] Name: Amelia Castorena Age: 26 yrs Sex: Female : 1990 Arrival Date: 04/23/2016 Time: 16:34 Bed TR8 Private MD: Diagnosis: Strain of muscle and tendon of back wall of thorax-right upper back Presentation: 04/23 16:44 Presenting complaint: Patient states: increased Neck and right shoulder pain today. H/o rs3 chronic pain. Adult Sepsis Screening: The patient does not have new or worsening altered mentation. Patient's respiratory rate is less than 22. Systolic blood pressure is greater than 100. Patient has a qSOFA score of 0- Negative Sepsis Screen. Suicide/Homicide risk assessment- the patient denies having any suicidal and/or homicidal ideations and does not present with any other emotional, behavioral or mental health complaints. Status: Patient is not a service engine repairer or dependent. Transition of care: patient was not received from another setting of care. 16:44 Acuity: LYNETTE Level 4 rs3 16:44 Method Of Arrival: Walkin/Carried/Asstd rs3 Triage Assessment: 16:45 General: Appears in no apparent distress. Pain: Location: back of neck. HIV screening rs3 NA for this visit Offered previously. NUTRITION SERVICES ASSOCIATE: 16:45 LMP 03/31/2016 rs3 Historical: - Allergies: Amoxicillin (Upset stomach); - Home Meds: 1. none - PMHx: GERD; - PSHx: none; - Social history: Smoking status: Patient states was never smoker of tobacco. No barriers to communication noted, The patient speaks fluent Divehi. - : The pt / caregiver states he / she is not on anticoagulants. Home medication list is obtained from the patient. - Exposure Risk Screening:: None identified. Screenin:38 Screening information is obtained from the patient. Fall risk: No risks identified. jjr Assistance ADL's: requires no assistance with activities of daily living. Abuse/DV Screen: The patient / caregiver reports he/she is: not in a situation that causes fear, pain or injury. Nutritional screening: No deficits noted. Advance Directives: There is no active DNR order. home support is adequate. Assessment: 17:38 General: Appears in no apparent distress, well nourished, well groomed, Behavior is jjr appropriate for age. Pain: Location: right posterior upper chest wall. Vital Signs: 16:35 BP 134 / 75 RA Sitting (auto/lg); Pulse 103; Resp 18; Temp 98.2(O); Pulse Ox 100% on bnb R/A; Weight 90.72 kg; Height 5 ft. 2 in. (157.48 cm); Pain 8/10; 16:35 Body Mass Index 36.58 (90.72 kg, 157.48 cm) bnb Vitals: 16:35 Log In Time: April 23, 2016 at 16:32. bnb ED Course: 16:35 Patient visited by Cierra Meyers PCA. bnb 16:35 Patient moved to Waiting bnb 16:36 Patient moved to Pre RCE bnb 16:45 Triage Initiated rs3 16:51 Patient moved to Triage 2 ar3 17:09 Jj Marley PA is PHCP. mo1 17:09 Naveen Dooley MD is Attending Physician. mo1 17:22 Patient visited by Jj Marley PA. mo1 17:37 Patient moved to TR1 jjr 17:38 Patient moved to TR8 ar3 17:38 The patient / caregiver is instructed regarding the plan of care and ED course. jjr 17:39 No IV's were initiated during this patient's visit. No procedures done that require jjr assistance. Administered Medications: 17:38 Drug: Ibuprofen 400 mg [ibuprofen 400 mg tablet (1 tabs)] Route: PO; jjr 17:38 Drug: Methocarbamol 1 grams [methocarbamol 500 mg tablet (2 tabs)] Route: PO; jjr Order Results: There are currently no results for this order. Outcome: 17:31 Discharge ordered by Provider. mo1 17:39 Discharge Assessment: patient administered narcotics - no. The following High Risk jjr Discharge criteria are identified: None. Discharged to home ambulatory, with significant other. Condition: stable. Discharge instructions given to patient, Instructed on discharge instructions, follow up and referral plans. medication usage, Demonstrated understanding of instructions, medications, Prescriptions given X 2. No special radiology studies were completed. Property sent home with patient. 17:39 Patient left the ED. jjr Signatures: Patrizia Bloom RN RN jjr Hayley Tobin,JULIA RN rs3 Bria Christianson, PRINTING PRESS OPERATOR APPRENTICE PRINTING PRESS OPERATOR APPRENTICE ar3 Jj Marley PA PA mo1 Cierra Meyers, PRINTING PRESS OPERATOR APPRENTICE PRINTING PRESS OPERATOR APPRENTICE bnb MTDD
--- NOTE | 2016-04-23 17:40 | EDDOCDS ---
Physician Documentation [facility] Name: Amelia Castorena Age: 26 yrs Sex: Female : 1990 Arrival Date: 04/23/2016 Time: 16:34 Bed TR8 Private MD: Disposition: 04/23/16 17:31 Discharged to Home/Self Care. Impression: Strain of muscle and tendon of back wall of thorax - right upper back. - Condition is Stable. - Discharge Instructions: Back Pain, Adult, Muscle Strain. - Prescriptions for Ibuprofen 800 mg Oral Tablet - take 1 tablet by ORAL route every 8 hours As needed take with food; 30 tablet. Robaxin 500 mg Oral Tablet - take 2 tablet by ORAL route every 6 hours As needed; 40 tablet. - Medication Reconciliation, Local Pharmacy Hours form. - Follow up: Private Physician; When: Call to arrange an appointment; Reason: Recheck today's complaints, Continuance of care. - Problem is new. - Symptoms are unchanged. Historical: - Allergies: Amoxicillin (Upset stomach); - Home Meds: 1. none - PMHx: GERD; - PSHx: none; - Social history: Smoking status: Patient states was never smoker of tobacco. No barriers to communication noted, The patient speaks fluent Lao. - : The pt / caregiver states he / she is not on anticoagulants. Home medication list is obtained from the patient. - Exposure Risk Screening:: None identified. FIRE PREVENTION FORESTER: 04/23 16:45 LMP 03/31/2016 rs3 Vital Signs: 16:35 BP 134 / 75 RA Sitting (auto/lg); Pulse 103; Resp 18; Temp 98.2(O); Pulse Ox 100% on bnb R/A; Weight 90.72 kg / 200 lbs; Height 5 ft. 2 in. (157.48 cm); Pain 8/10; 16:35 Body Mass Index 36.58 (90.72 kg, 157.48 cm) bnb MDM: 17:31 Ibuprofen 400 mg PO once ordered. mo1 17:31 Methocarbamol 1 grams PO once ordered. mo1 Administered Medications: 17:38 Drug: Ibuprofen 400 mg [ibuprofen 400 mg tablet (1 tabs)] Route: PO; jjr 17:38 Drug: Methocarbamol 1 grams [methocarbamol 500 mg tablet (2 tabs)] Route: PO; jjr Signatures: Patrizia Bloom RN RN jjr Hayley Tobin RN RN rs3 Jj Marley PA PA mo1 MTDD
--- NOTE | 2016-04-25 18:40 | EDDOCDS ---
Physician Documentation [facility] Name: Amelia Castorena Age: 26 yrs Sex: Female : 1990 Arrival Date: 04/23/2016 Time: 16:34 Bed TR8 Private MD: Disposition: 04/23/16 17:31 Discharged to Home/Self Care. Impression: Strain of muscle and tendon of back wall of thorax - right upper back. - Condition is Stable. - Discharge Instructions: Back Pain, Adult, Muscle Strain. - Prescriptions for Ibuprofen 800 mg Oral Tablet - take 1 tablet by ORAL route every 8 hours As needed take with food; 30 tablet. Robaxin 500 mg Oral Tablet - take 2 tablet by ORAL route every 6 hours As needed; 40 tablet. - Medication Reconciliation, Local Pharmacy Hours form. - Follow up: Private Physician; When: Call to arrange an appointment; Reason: Recheck today's complaints, Continuance of care. - Problem is new. - Symptoms are unchanged. Historical: - Allergies: Amoxicillin (Upset stomach); - Home Meds: 1. none - PMHx: GERD; - PSHx: none; - Social history: Smoking status: Patient states was never smoker of tobacco. No barriers to communication noted, The patient speaks fluent Swedish. - : The pt / caregiver states he / she is not on anticoagulants. Home medication list is obtained from the patient. - Exposure Risk Screening:: None identified. 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 2 in. (157.48 cm); Pain 8/10; 16:35 Body Mass Index 36.58 (90.72 kg, 157.48 cm) bnb MDM: 17:31 Ibuprofen 400 mg PO once ordered. mo1 17:31 Methocarbamol 1 grams PO once ordered. mo1 17:40 [facility] Payment Agreement was scanned into [employer] and attached to record. jp5 17:40 Financial registration complete. jp5 04/24 13:32 T-Sheet-- Draft Copy was scanned into [employer] and attached to record. gb Administered Medications: 04/23 17:38 Drug: Ibuprofen 400 mg [ibuprofen 400 mg tablet (1 tabs)] Route: PO; izzy 17:38 Drug: Methocarbamol 1 grams [methocarbamol 500 mg tablet (2 tabs)] Route: PO; jjr Signatures: Evon Chung, Reg Reg gb Patrizia Bloom RN RN jjr Hayley Tobin RN RN rs3 Jj Marley PA PA mo1 Sami Alvarez jp5 The chart was reviewed and I authenticate all verbal orders and agree with the evaluation and treatment provided.Attachments: 17:40 [facility] Payment Agreement jp5 04/24 13:32 T-Sheet-- Draft Copy Chart Complete MTDD
--- NOTE | 2016-04-25 18:40 | EDDOCDS ---
Nurse's Notes [facility] Name: Amelia Castorena Age: 26 yrs Sex: Female : 1990 Arrival Date: 04/23/2016 Time: 16:34 Bed TR8 Private MD: Diagnosis: Strain of muscle and tendon of back wall of thorax-right upper back Presentation: 04/23 16:44 Presenting complaint: Patient states: increased Neck and right shoulder pain today. H/o rs3 chronic pain. Adult Sepsis Screening: The patient does not have new or worsening altered mentation. Patient's respiratory rate is less than 22. Systolic blood pressure is greater than 100. Patient has a qSOFA score of 0- Negative Sepsis Screen. Suicide/Homicide risk assessment- the patient denies having any suicidal and/or homicidal ideations and does not present with any other emotional, behavioral or mental health complaints. 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 Transition of care: patient was not received from another setting of care. 16:44 Acuity: LYNETTE Level 4 rs3 16:44 Method Of Arrival: Walkin/Carried/Asstd rs3 Triage Assessment: 16:45 General: Appears in no apparent distress. Pain: Location: back of neck. HIV screening rs3 NA for this visit Offered previously. 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 none - PMHx: GERD; - PSHx: none; - Social history: Smoking status: Patient states was never smoker of tobacco. No barriers to communication noted, The patient speaks fluent Uzbek. - : The pt / caregiver states he / she is not on anticoagulants. Home medication list is obtained from the patient. - Exposure Risk Screening:: None identified. Screenin:38 Screening information is obtained from the patient. Fall risk: No risks identified. jjr Assistance ADL's: requires no assistance with activities of daily living. Abuse/DV Screen: The patient / caregiver reports he/she is: not in a situation that causes fear, pain or injury. Nutritional screening: No deficits noted. Advance Directives: There is no active DNR order. home support is adequate. Assessment: 17:38 General: Appears in no apparent distress, well nourished, well groomed, Behavior is jjr appropriate for age. Pain: Location: right posterior upper chest wall. Vital Signs: 16:35 BP 134 / 75 RA Sitting (auto/lg); Pulse 103; Resp 18; Temp 98.2(O); Pulse Ox 100% on bnb R/A; Weight 90.72 kg; Height 5 ft. 2 in. (157.48 cm); Pain 8/10; 16:35 Body Mass Index 36.58 (90.72 kg, 157.48 cm) bnb Vitals: 16:35 Log In Time: April 23, 2016 at 16:32. bnb ED Course: 16:35 Patient visited by Cierra Meyers PCA. bnb 16:35 Patient moved to Waiting bnb 16:36 Patient moved to Pre RCE bnb 16:45 Triage Initiated rs3 16:51 Patient moved to Triage 2 ar3 17:09 Jj Marley PA is PHCP. mo1 17:09 Naveen Dooley MD is Attending Physician. mo1 17:22 Patient visited by Jj Marley PA. mo1 17:37 Patient moved to TR1 jjr 17:38 Patient moved to TR8 ar3 17:38 The patient / caregiver is instructed regarding the plan of care and ED course. jjr 17:39 No IV's were initiated during this patient's visit. No procedures done that require jjr assistance. 17:40 [facility] Payment Agreement was scanned into [employer] and attached to record. jp5 04/24 13:32 T-Sheet-- Draft Copy was scanned into [employer] and attached to record. gb Administered Medications: 04/23 17:38 Drug: Ibuprofen 400 mg [ibuprofen 400 mg tablet (1 tabs)] Route: PO; jjr 17:38 Drug: Methocarbamol 1 grams [methocarbamol 500 mg tablet (2 tabs)] Route: PO; jjr Order Results: There are currently no results for this order. Outcome: 17:31 Discharge ordered by Provider. mo1 17:39 Discharge Assessment: patient administered narcotics - no. The following High Risk jjr Discharge criteria are identified: None. Discharged to home ambulatory, with significant other. Condition: stable. Discharge instructions given to patient, Instructed on discharge instructions, follow up and referral plans. medication usage, Demonstrated understanding of instructions, medications, Prescriptions given X 2. No special radiology studies were completed. Property sent home with patient. 17:39 Patient left the ED. izzy Signatures: Evon Chung Reg Reg gb Raymond, Jessica RN RN Hayley Moser RN RN rs3 Bria Christianson, LUMBER PILER LUMBER PILER ar3 Jj Marley PA PA mo1 Sami Alvarez jp5 Cierra Meyers, LUMBER PILER LUMBER PILER bnb Chart Complete MTDD
--- NOTE | 2016-04-25 18:40 | EDDOCDS ---
Physician Documentation [facility] Name: Amelia Castorena Age: 26 yrs Sex: Female : 1990 Arrival Date: 04/23/2016 Time: 16:34 Bed TR8 Private MD: Disposition: 04/23/16 17:31 Discharged to Home/Self Care. Impression: Strain of muscle and tendon of back wall of thorax - right upper back. - Condition is Stable. - Discharge Instructions: Back Pain, Adult, Muscle Strain. - Prescriptions for Ibuprofen 800 mg Oral Tablet - take 1 tablet by ORAL route every 8 hours As needed take with food; 30 tablet. Robaxin 500 mg Oral Tablet - take 2 tablet by ORAL route every 6 hours As needed; 40 tablet. - Medication Reconciliation, Local Pharmacy Hours form. - Follow up: Private Physician; When: Call to arrange an appointment; Reason: Recheck today's complaints, Continuance of care. - Problem is new. - Symptoms are unchanged. Historical: - Allergies: Amoxicillin (Upset stomach); - Home Meds: 1. none - PMHx: GERD; - PSHx: none; - Social history: Smoking status: Patient states was never smoker of tobacco. No barriers to communication noted, The patient speaks fluent Syriac. - : The pt / caregiver states he / she is not on anticoagulants. Home medication list is obtained from the patient. - Exposure Risk Screening:: None identified. 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 2 in. (157.48 cm); Pain 8/10; 16:35 Body Mass Index 36.58 (90.72 kg, 157.48 cm) bnb MDM: 17:31 Ibuprofen 400 mg PO once ordered. mo1 17:31 Methocarbamol 1 grams PO once ordered. mo1 17:40 [facility] Payment Agreement was scanned into [employer] and attached to record. jp5 17:40 Financial registration complete. jp5 04/24 13:32 T-Sheet-- Draft Copy was scanned into [employer] and attached to record. gb Administered Medications: 04/23 17:38 Drug: Ibuprofen 400 mg [ibuprofen 400 mg tablet (1 tabs)] Route: PO; izzy 17:38 Drug: Methocarbamol 1 grams [methocarbamol 500 mg tablet (2 tabs)] Route: PO; jjr Signatures: Evon Chung, Reg Reg gb Patrizia Bloom RN RN jjr Hayley Tobin RN RN rs3 Jj Marley PA PA mo1 Sami Alvarez jp5 The chart was reviewed and I authenticate all verbal orders and agree with the evaluation and treatment provided.Attachments: 17:40 [facility] Payment Agreement jp5 04/24 13:32 T-Sheet-- Draft Copy Chart Complete MTDD
== END 2016-04-23 17:39 | disposition home or self-care (01) ==
LOC: M ED 16:34
DX: S29.012A Strain of muscle and tendon of back wall of thorax, initial encounter (principal); X58.XXXA Exposure to other specified factors, initial encounter; Y92.9 Unspecified place or not applicable; Y93.9 Activity, unspecified; Y99.9 Unspecified external cause status; K21.9 Gastro-esophageal reflux disease without esophagitis; Z88.0 Allergy status to penicillin

== ENCOUNTER → 2017-03-06 | Outpatient (CLI) | payer OTHER ==
[2017-03-06 13:10] LABS: ALBUMIN 4.2 GM/DL (3.2-5.2); ALBUMIN/GLOBULIN RATIO 1.02 (1.00-1.93); ALKALINE PHOSPHATASE 96 U/L (45-117); ALT/SGPT 33 U/L (12-78); ANION GAP 8 MEQ/L (8-16); AST/SGOT 23 U/L (7-37); BILIRUBIN,TOTAL 0.2 MG/DL (0.2-1.0); BLOOD UREA NITROGEN 11 MG/DL (7-18); CALCIUM LEVEL 8.5 MG/DL (8.5-10.1); CARBON DIOXIDE LEVEL 27 MEQ/L (21-32); CHLORIDE LEVEL 105 MEQ/L (98-107); CHOLESTEROL LEVEL 120 MG/DL (<200); CREATININE FOR GFR 0.63 MG/DL (0.55-1.02); GLOMERULAR FILTRATION RATE > 60.0 (>60); GLUCOSE, FASTING 73 MG/DL (70-105); POTASSIUM SERUM 3.9 MEQ/L (3.5-5.1); SODIUM LEVEL 140 MEQ/L (136-145); TOTAL PROTEIN 8.3 GM/DL (6.4-8.2); TRIGLYCERIDES LEVEL 81 MG/DL (<150)
== END ==
LOC: M LAB 11:32
PROVIDERS: ATTEND Family Medicine
DX: R53.83 Other fatigue (principal); E66.9 Obesity, unspecified

== ENCOUNTER → 2017-06-12 | Outpatient (CLI) | payer OTHER ==
[2017-06-12 11:24] LABS: BASO # 0.1 10^3/uL (0.0-0.2); BASO % 0.7 % (0.0-1.0); EOS # 0.2 10^3/uL (0.0-0.50); EOS % 1.5 % (0.0-3.0); HEMATOCRIT 37.5 % (36.0-47.0); HEMOGLOBIN 11.7 g/dl (12.0-15.5); IMMATURE GRANULOCYTE % 0.5 % (0-3.0); LYMPH # 2.6 10^3/uL (1.5-6.5); LYMPH % 24.6 % (24.0-44.0); MEAN CORPUSCULAR HEMOGLOBIN 24.6 pg (27.0-33.0); MEAN CORPUSCULAR HGB CONC 31.2 g/dl (32.0-36.5); MEAN CORPUSCULAR VOLUME 78.8 fl (80.0-96.0); MONO # 0.7 10^3/uL (0.0-0.8); MONO % 6.2 % (0.0-5.0); NEUTROPHILS # 7.1 10^3/uL (1.8-7.7); NEUTROPHILS % 66.5 % (36.0-66.0); PLATELET COUNT, AUTOMATED 282 10^3/uL (150-450); RED BLOOD COUNT 4.76 10^6/uL (4.00-5.40); RED CELL DISTRIBUTION WIDTH 15.8 % (11.5-14.5); WHITE BLOOD COUNT 10.6 10^3/uL (4.0-10.0)
[2017-06-12 11:49] LABS: ALBUMIN/GLOBULIN RATIO 0.98 (1.00-1.93); ALKALINE PHOSPHATASE 97 U/L (45-117); ALT/SGPT 39 U/L (12-78); ANION GAP 7 MEQ/L (8-16); AST/SGOT 27 U/L (7-37); BILIRUBIN,TOTAL 0.3 MG/DL (0.2-1.0); BLOOD UREA NITROGEN 9 MG/DL (7-18); CALCIUM LEVEL 8.5 MG/DL (8.5-10.1); CARBON DIOXIDE LEVEL 25 MEQ/L (21-32); CHLORIDE LEVEL 107 MEQ/L (98-107); CHOLESTEROL LEVEL 112 MG/DL (<200); CHOLESTEROL RISK RATIO 3.294 (<5); CREATININE FOR GFR 0.67 MG/DL (0.55-1.30); GLOMERULAR FILTRATION RATE > 60.0 (>60); GLUCOSE, FASTING 83 MG/DL (70-100); HDL CHOLESTEROL 34 MG/DL (>40); LDL CHOLESTEROL 65.4 MG/DL (<100); NON-HDL-C 78 MG/DL; SODIUM LEVEL 139 MEQ/L (136-145); TOTAL PROTEIN 8.1 GM/DL (6.4-8.2); TRIGLYCERIDES LEVEL 63 MG/DL (<150)
== END ==
LOC: M LAB 10:30
DX: R11.0 Nausea (principal); K21.9 Gastro-esophageal reflux disease without esophagitis; R19.7 Diarrhea, unspecified
CPT/HCPCS: 84443

== ENCOUNTER → 2017-08-28 | Outpatient (CLI) | payer OTHER | LOC: M RAD 10:51 | DX: R06.00 Dyspnea, unspecified (principal) | CPT/HCPCS: 71046 ==

== ENCOUNTER 2018-01-22 07:18 | Emergency (ER) | payer OTHER ==
[2018-01-22] MEDS: ONDANSETRON 4MG/2ML VIAL (J2405) IV (08:25)
[2018-01-22] MEDS: NS 1,000 ML IV (08:25)
[2018-01-22 08:31] LABS: BASO # 0.1 10^3/uL (0.0-0.2); BASO % 0.5 % (0.0-1.0); EOS # 0.2 10^3/uL (0.0-0.50); EOS % 1.7 % (0.0-3.0); HEMATOCRIT 40.2 % (36.0-47.0); HEMOGLOBIN 12.8 g/dl (12.0-15.5); IMMATURE GRANULOCYTE % 0.5 % (0-3.0); LYMPH # 2.7 10^3/uL (1.5-6.5); LYMPH % 24.4 % (24.0-44.0); MEAN CORPUSCULAR HEMOGLOBIN 25.8 pg (27.0-33.0); MEAN CORPUSCULAR HGB CONC 31.8 g/dl (32.0-36.5); MONO # 0.7 10^3/uL (0.0-0.8); MONO % 6.3 % (0.0-5.0); NEUTROPHILS # 7.3 10^3/uL (1.8-7.7); NEUTROPHILS % 66.6 % (36.0-66.0); PLATELET COUNT, AUTOMATED 242 10^3/uL (150-450); RED BLOOD COUNT 4.96 10^6/uL (4.00-5.40); RED CELL DISTRIBUTION WIDTH 15.9 % (11.5-14.5); WHITE BLOOD COUNT 10.9 10^3/uL (4.0-10.0)
[2018-01-22 08:39] LABS: KETONE, URINE AUTO RFX NEGATIVE (NEGATIVE); LEUKOCYTE ESTERASE UR AUTO RFX NEGATIVE (NEGATIVE); NITRITE, URINE AUTO RFX NEGATIVE (NEGATIVE); RBC, URINE AUTO RFX 0 /HPF (0-3); SPECIFIC GRAVITY UR AUTO RFX 1.023 (1.002-1.035); SQUAM EPITHELIAL CELL UR AURFX 1 /HPF (0-6); WBC, URINE AUTO RFX 0 /HPF (0-3)
[2018-01-22 10:12] LABS: ALBUMIN 3.8 GM/DL (3.2-5.2); ALBUMIN/GLOBULIN RATIO 0.95 (1.00-1.93); ALKALINE PHOSPHATASE 97 U/L (45-117); ALT/SGPT 68 U/L (12-78); AMYLASE 33 U/L (25-115); ANION GAP 6 MEQ/L (8-16); AST/SGOT 38 U/L (7-37); BILIRUBIN,DIRECT < 0.1 MG/DL (0.0-0.2); BILIRUBIN,TOTAL 0.3 MG/DL (0.2-1.0); BLOOD UREA NITROGEN 10 MG/DL (7-18); CALCIUM LEVEL 8.7 MG/DL (8.5-10.1); CARBON DIOXIDE LEVEL 27 MEQ/L (21-32); CHLORIDE LEVEL 106 MEQ/L (98-107); GLOMERULAR FILTRATION RATE > 60.0 (>60); GLUCOSE, FASTING 92 MG/DL (70-100); LIPASE 74 U/L (73-393); POTASSIUM SERUM 3.8 MEQ/L (3.5-5.1); SODIUM LEVEL 139 MEQ/L (136-145); TOTAL PROTEIN 7.8 GM/DL (6.4-8.2)
== END 2018-01-22 10:30 | disposition home or self-care (01) ==
LOC: M ED 07:18
DX: R10.9 Unspecified abdominal pain (principal); R11.2 Nausea with vomiting, unspecified; R19.7 Diarrhea, unspecified; K21.9 Gastro-esophageal reflux disease without esophagitis
CPT/HCPCS: J2405

== ENCOUNTER 2018-01-23 12:01 | Emergency (ER) | payer OTHER ==
[2018-01-23] MEDS ORDERED: NS 1,000 ML IV (12:30)
[2018-01-23] MEDS ORDERED: ONDANSETRON 4MG/2ML VIAL (J2405) IV (12:30)
[2018-01-23] MEDS: PROMETHAZINE 25 MG SUPP PR (13:20)
[2018-01-23 13:21] LABS: BASO % 0.4 % (0.0-1.0); EOS # 0.1 10^3/uL (0.0-0.50); EOS % 1.1 % (0.0-3.0); HEMATOCRIT 37.6 % (36.0-47.0); HEMOGLOBIN 11.9 g/dl (12.0-15.5); IMMATURE GRANULOCYTE % 0.4 % (0-3.0); LYMPH # 2.3 10^3/uL (1.5-6.5); LYMPH % 20.5 % (24.0-44.0); MEAN CORPUSCULAR HEMOGLOBIN 25.9 pg (27.0-33.0); MEAN CORPUSCULAR HGB CONC 31.6 g/dl (32.0-36.5); MEAN CORPUSCULAR VOLUME 81.9 fl (80.0-96.0); MONO # 0.8 10^3/uL (0.0-0.8); MONO % 6.7 % (0.0-5.0); NEUTROPHILS % 70.9 % (36.0-66.0); PLATELET COUNT, AUTOMATED 234 10^3/uL (150-450); RED BLOOD COUNT 4.59 10^6/uL (4.00-5.40); RED CELL DISTRIBUTION WIDTH 15.9 % (11.5-14.5); WHITE BLOOD COUNT 11.3 10^3/uL (4.0-10.0)
[2018-01-23 14:50] LABS: ANION GAP 6 MEQ/L (8-16); BLOOD UREA NITROGEN 9 MG/DL (7-18); CALCIUM LEVEL 8.4 MG/DL (8.5-10.1); CARBON DIOXIDE LEVEL 27 MEQ/L (21-32); CHLORIDE LEVEL 108 MEQ/L (98-107); CREATININE FOR GFR 0.79 MG/DL (0.55-1.30); GLOMERULAR FILTRATION RATE > 60.0 (>60); GLUCOSE, FASTING 82 MG/DL (70-100); SODIUM LEVEL 141 MEQ/L (136-145)
== END 2018-01-23 15:21 | disposition home or self-care (01) ==
LOC: M ED 12:01
DX: A08.4 Viral intestinal infection, unspecified (principal); F33.9 Major depressive disorder, recurrent, unspecified; K21.9 Gastro-esophageal reflux disease without esophagitis; Z98.890 Other specified postprocedural states; Z79.899 Other long term (current) drug therapy
CPT/HCPCS: 80048

== ENCOUNTER 2018-01-30 12:34 | Emergency (ER) | payer OTHER ==
[2018-01-30 13:25] LABS: BASO # 0.1 10^3/uL (0.0-0.2); BASO % 0.5 % (0.0-1.0); EOS # 0.1 10^3/uL (0.0-0.50); EOS % 1.1 % (0.0-3.0); HEMATOCRIT 39.7 % (36.0-47.0); HEMOGLOBIN 12.9 g/dl (12.0-15.5); IMMATURE GRANULOCYTE % 0.3 % (0-3.0); LYMPH # 1.9 10^3/uL (1.5-6.5); LYMPH % 18.7 % (24.0-44.0); MEAN CORPUSCULAR HEMOGLOBIN 26.2 pg (27.0-33.0); MEAN CORPUSCULAR HGB CONC 32.5 g/dl (32.0-36.5); MEAN CORPUSCULAR VOLUME 80.5 fl (80.0-96.0); MONO # 0.7 10^3/uL (0.0-0.8); MONO % 7.1 % (0.0-5.0); NEUTROPHILS # 7.4 10^3/uL (1.8-7.7); NEUTROPHILS % 72.3 % (36.0-66.0); PLATELET COUNT, AUTOMATED 247 10^3/uL (150-450); RED BLOOD COUNT 4.93 10^6/uL (4.00-5.40); RED CELL DISTRIBUTION WIDTH 15.6 % (11.5-14.5); WHITE BLOOD COUNT 10.2 10^3/uL (4.0-10.0)
[2018-01-30] MEDS: ONDANSETRON 4 MG ORAL DISINTEGRATING TAB (Q0162 PER 1MG) PO (13:26)
[2018-01-30 13:27] LABS: KETONE, URINE AUTO RFX NEGATIVE (NEGATIVE); NITRITE, URINE AUTO RFX NEGATIVE (NEGATIVE); RBC, URINE AUTO RFX 1 /HPF (0-3); SPECIFIC GRAVITY UR AUTO RFX 1.013 (1.002-1.035); SQUAM EPITHELIAL CELL UR AURFX 1 /HPF (0-6); WBC, URINE AUTO RFX 1 /HPF (0-3)
[2018-01-30 13:28] LABS: LEUKOCYTE ESTERASE UR AUTO RFX TRACE (NEGATIVE)
[2018-01-30 13:39] LABS: ANION GAP 5 MEQ/L (8-16); BLOOD UREA NITROGEN 9 MG/DL (7-18); CALCIUM LEVEL 8.5 MG/DL (8.5-10.1); CARBON DIOXIDE LEVEL 27 MEQ/L (21-32); CHLORIDE LEVEL 107 MEQ/L (98-107); CREATININE FOR GFR 0.79 MG/DL (0.55-1.30); GLOMERULAR FILTRATION RATE > 60.0 (>60); GLUCOSE, FASTING 89 MG/DL (70-100); POTASSIUM SERUM 3.9 MEQ/L (3.5-5.1); SODIUM LEVEL 139 MEQ/L (136-145)
[2018-01-30] MEDS: NS 1,000 ML IV (14:00)
[2018-01-30] MEDS ORDERED: ISOVUE-370 76% 100ML VIAL (Q9967) As Ordered (14:05)
== END 2018-01-30 15:47 | disposition home or self-care (01) ==
LOC: M ED 12:34
DX: N83.291 Other ovarian cyst, right side (principal); K76.0 Fatty (change of) liver, not elsewhere classified; Z79.899 Other long term (current) drug therapy
CPT/HCPCS: Q9967

== ENCOUNTER 2018-05-05 16:12 | Emergency (ER) | payer OTHER ==
[~2018-05-05] VITALS: Ht 157.5 cm; Wt 272.0 kg
[~2018-05-05 16:12] MED LIST: DICY10CA13 PO; DULO1CAP3; FERR32TA; PROM25SU PR; RANI-280; REGL10TA6 PO; TRAM50TA2 PO; ZOFR4TAB14 PO
[2018-05-05] MEDS ORDERED: TRAZ-160 (16:21)
--- NOTE | 2018-05-05 17:01 | REP ---
CT of the brain without IV contrast: There is no subdural or epidural hematoma. There is no intracranial hemorrhage otherwise. There is no edema, mass effect or midline shift. The ventricles are normal size and midline. The cortical stripe is unremarkable. The visualized paranasal sinuses and mastoid air cells are clear. On the prior study. The adenoids are hypertrophied. The adenoids are not included on the current study. Impression: No subdural or epidural hematoma. No intracranial hemorrhage otherwise. No edema, mass effect or midline shift. Otherwise, negative CT study of the brain. Electronically Signed by Bay Marc MD 05/05/2018 04:53 P
[2018-05-05 17:25] VITALS: BP 113/73
== END 2018-05-05 17:26 | disposition home or self-care (01) ==
LOC: M ED 16:12
DX: S09.90XA Unspecified injury of head, initial encounter (principal); W22.8XXA Striking against or struck by other objects, initial encounter; Y92.810 Car as the place of occurrence of the external cause; K21.9 Gastro-esophageal reflux disease without esophagitis; F33.9 Major depressive disorder, recurrent, unspecified

== ENCOUNTER → 2018-05-17 | Outpatient (CLI) | payer OTHER, MEDICAID ==
[~2018-05-17] MED LIST changes: +TRAZ-160
[2018-05-17 10:51] LABS: BASO # 0.1 10^3/uL (0.0-0.2); BASO % 0.6 % (0.0-1.0); EOS # 0.2 10^3/uL (0.0-0.50); EOS % 2.2 % (0.0-3.0); HEMATOCRIT 38.3 % (36.0-47.0); HEMOGLOBIN 12.9 g/dl (12.0-15.5); LYMPH # 2.1 10^3/uL (1.5-6.5); LYMPH % 23.7 % (24.0-44.0); MEAN CORPUSCULAR HEMOGLOBIN 28.1 pg (27.0-33.0); MEAN CORPUSCULAR HGB CONC 33.7 g/dl (32.0-36.5); MEAN CORPUSCULAR VOLUME 83.4 fl (80.0-96.0); MONO # 0.6 10^3/uL (0.0-0.8); MONO % 6.6 % (0.0-5.0); NEUTROPHILS # 5.9 10^3/uL (1.8-7.7); NEUTROPHILS % 66.8 % (36.0-66.0); PLATELET COUNT, AUTOMATED 241 10^3/uL (150-450); RED BLOOD COUNT 4.59 10^6/uL (4.00-5.40); WHITE BLOOD COUNT 8.8 10^3/uL (4.0-10.0)
[2018-05-17 11:25] LABS: HEMOGLOBIN A1c 5.7 %
[2018-05-17 11:31] LABS: ALBUMIN 3.8 GM/DL (3.2-5.2); ALT/SGPT 60 U/L (12-78); BILIRUBIN,TOTAL 0.2 MG/DL (0.2-1.0); BLOOD UREA NITROGEN 10 MG/DL (7-18); CALCIUM LEVEL 8.5 MG/DL (8.5-10.1); CARBON DIOXIDE LEVEL 27 MEQ/L (21-32); CHLORIDE LEVEL 106 MEQ/L (98-107); CHOLESTEROL LEVEL 103 MG/DL (<200); CHOLESTEROL RISK RATIO 2.942 (<5); CREATININE FOR GFR 0.78 MG/DL (0.55-1.30); GLOMERULAR FILTRATION RATE > 60.0 (>60); GLUCOSE, FASTING 93 MG/DL (70-100); HDL CHOLESTEROL 35 MG/DL (>40); LDL CHOLESTEROL 54 MG/DL (<100); NON-HDL-C 68 MG/DL; POTASSIUM SERUM 3.9 MEQ/L (3.5-5.1); SODIUM LEVEL 140 MEQ/L (136-145); TOTAL PROTEIN 7.7 GM/DL (6.4-8.2); TRIGLYCERIDES LEVEL 69 MG/DL (<150)
[2018-05-17 11:56] LABS: TOTAL 25(OH) VITAMIN D 16.1 NG/ML (30.0-100.0)
== END ==
LOC: M LAB 10:08
PROVIDERS: ATTEND Nurse Practitioner Family
DX: Z13.9 Encounter for screening, unspecified (principal); D64.9 Anemia, unspecified

== ENCOUNTER → 2018-07-05 | Outpatient (REF) | payer OTHER, MEDICAID ==
[2018-07-05 13:38] LABS: URINE PREG TEST NEGATIVE (NEGATIVE)
== END ==
LOC: M LAB REF 12:54
PROVIDERS: ATTEND Physician Assistant
DX: N91.2 Amenorrhea, unspecified (principal)

== ENCOUNTER 2018-09-17 17:19 | Emergency (ER) | payer MEDICAID, OTHER ==
[~2018-09-17] VITALS: Ht 157.5 cm; Wt 122.7 kg
[~2018-09-17 17:19] MED LIST changes: -DULO1CAP3; +DULO1CAP6; -TRAZ-160; +TRAZ-252
[2018-09-17] MEDS ORDERED: DULO1CAP6 (17:24)
[2018-09-17] MEDS ORDERED: CEFD1CAP8 (17:24)
[2018-09-17] MEDS ORDERED: LORA-674 (17:24)
[2018-09-17 19:20] VITALS: BP 138/78
[2018-09-17] MEDS ORDERED: ONDANSETRON 4MG/2ML VIAL (J2405) IV ONE (20:30)
[2018-09-17 21:14] LABS: BASO % 0.4 % (0.0-1.0); EOS % 0.2 % (0.0-3.0); HEMATOCRIT 44.5 % (36.0-47.0); HEMOGLOBIN 14.7 g/dl (12.0-15.5); LYMPH # 0.7 10^3/uL (1.5-6.5); LYMPH % 5.9 % (24.0-44.0); MEAN CORPUSCULAR HEMOGLOBIN 28.1 pg (27.0-33.0); MEAN CORPUSCULAR VOLUME 85.1 fl (80.0-96.0); MONO # 0.6 10^3/uL (0.0-0.8); MONO % 5.4 % (0.0-5.0); NEUTROPHILS # 9.9 10^3/uL (1.8-7.7); NEUTROPHILS % 87.7 % (36.0-66.0); PLATELET COUNT, AUTOMATED 191 10^3/uL (150-450); RED BLOOD COUNT 5.23 10^6/uL (4.00-5.40); WHITE BLOOD COUNT 11.2 10^3/uL (4.0-10.0)
[2018-09-17 21:30] LABS: BLOOD UREA NITROGEN 13 MG/DL (7-18); CALCIUM LEVEL 9.3 MG/DL (8.5-10.1); CARBON DIOXIDE LEVEL 22 MEQ/L (21-32); CHLORIDE LEVEL 107 MEQ/L (98-107); CREATININE FOR GFR 1.04 MG/DL (0.55-1.30); GLOMERULAR FILTRATION RATE > 60.0 (>60); GLUCOSE, FASTING 116 MG/DL (70-100); SODIUM LEVEL 140 MEQ/L (136-145)
[2018-09-17] MEDS ORDERED: ONDA4TAB6 PO (22:50)
== END 2018-09-17 23:25 | disposition home or self-care (01) ==
LOC: M ED 17:19
DX: R11.2 Nausea with vomiting, unspecified (principal); R19.7 Diarrhea, unspecified; T36.95XA Adverse effect of unspecified systemic antibiotic, initial encounter; X58.XXXA Exposure to other specified factors, initial encounter; Y92.89 Other specified places as the place of occurrence of the external cause; F33.9 Major depressive disorder, recurrent, unspecified; F41.9 Anxiety disorder, unspecified; E66.9 Obesity, unspecified; Z79.899 Other long term (current) drug therapy; Z88.0 Allergy status to penicillin
CPT/HCPCS: 80048; 85025; 96374; 99284; J2405

== ENCOUNTER 2018-09-18 15:52 | Emergency (ER) | payer OTHER ==
[~2018-09-18] VITALS: Ht 157.5 cm; Wt 122.7 kg
[~2018-09-18 15:52] MED LIST changes: +CEFD1CAP8; +LORA-674; +ONDA4TAB6 PO
[2018-09-18 17:17] LABS: BASO % 0.4 % (0.0-1.0); EOS # 0.1 10^3/uL (0.0-0.50); EOS % 1.4 % (0.0-3.0); HEMATOCRIT 45.6 % (36.0-47.0); LYMPH # 1.5 10^3/uL (1.5-6.5); LYMPH % 21.1 % (24.0-44.0); MEAN CORPUSCULAR HEMOGLOBIN 28.8 pg (27.0-33.0); MEAN CORPUSCULAR HGB CONC 32.9 g/dl (32.0-36.5); MEAN CORPUSCULAR VOLUME 87.7 fl (80.0-96.0); MONO # 0.6 10^3/uL (0.0-0.8); MONO % 8.5 % (0.0-5.0); NEUTROPHILS # 4.8 10^3/uL (1.8-7.7); NEUTROPHILS % 68.5 % (36.0-66.0); PLATELET COUNT, AUTOMATED 178 10^3/uL (150-450)
[2018-09-18] MEDS ORDERED: NS 1,000 ML IV ONE (18:15)
[2018-09-18] MEDS ORDERED: ONDANSETRON 4MG/2ML VIAL (J2405) IV ONE (18:15)
[2018-09-18 18:58] LABS: ALT/SGPT 54 U/L (12-78); BILIRUBIN,DIRECT 0.1 MG/DL (0.0-0.2); BILIRUBIN,TOTAL 0.4 MG/DL (0.2-1.0); BLOOD UREA NITROGEN 12 MG/DL (7-18); CARBON DIOXIDE LEVEL 26 MEQ/L (21-32); CHLORIDE LEVEL 106 MEQ/L (98-107); CK-MB VALUE MASS 1.4 NG/ML (<3.6); CPK CREATINE PHOSPHOKINASE 193 U/L (26-192); CREATININE FOR GFR 0.95 MG/DL (0.55-1.30); GLOMERULAR FILTRATION RATE > 60.0 (>60); GLUCOSE, FASTING 83 MG/DL (70-100); LIPASE 58 U/L (73-393); MB/CK RELATIVE INDEX 0.73 (< OR =4); POTASSIUM SERUM 3.5 MEQ/L (3.5-5.1); SODIUM LEVEL 140 MEQ/L (136-145); TOTAL PROTEIN 8.1 GM/DL (6.4-8.2); TROPONIN I < 0.02 NG/ML (< 0.10)
[2018-09-18 19:00] LABS: HCG, SERUM QUALITATIVE NEGATIVE (NEGATIVE)
[2018-09-18 19:31] VITALS: BP 118/58
--- NOTE | 2018-09-19 07:44 | ECGEPIP ---
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
== END 2018-09-18 19:55 | disposition home or self-care (01) ==
LOC: EDBD 15:52 → M ED 15:52
DX: R11.2 Nausea with vomiting, unspecified (principal); Z88.1 Allergy status to other antibiotic agents; Z79.899 Other long term (current) drug therapy; Z79.2 Long term (current) use of antibiotics
CPT/HCPCS: 36415; 80048; 80076; 82550; 82553; 83690; 84703; 85025; 93005; 93041; 96374; 99285; J2405

== ENCOUNTER → 2018-09-22 | Outpatient (REF) | payer OTHER | LOC: M SFHCLERA 10:23 | PROVIDERS: ATTEND Nurse Practitioner Family | DX: J02.9 Acute pharyngitis, unspecified (principal) ==

== ENCOUNTER → 2018-10-15 | Outpatient (REF) | payer OTHER ==
[2018-10-15 14:02] LABS: BASO % 0.5 % (0.0-1.0); EOS # 0.1 10^3/uL (0.0-0.50); HEMATOCRIT 42.5 % (36.0-47.0); HEMOGLOBIN 13.7 g/dl (12.0-15.5); LYMPH # 1.7 10^3/uL (1.5-6.5); LYMPH % 22.8 % (24.0-44.0); MEAN CORPUSCULAR HEMOGLOBIN 28.2 pg (27.0-33.0); MEAN CORPUSCULAR HGB CONC 32.2 g/dl (32.0-36.5); MEAN CORPUSCULAR VOLUME 87.4 fl (80.0-96.0); MONO # 0.7 10^3/uL (0.0-0.8); MONO % 9.1 % (0.0-5.0); NEUTROPHILS # 4.8 10^3/uL (1.8-7.7); NEUTROPHILS % 66.3 % (36.0-66.0); PLATELET COUNT, AUTOMATED 158 10^3/uL (150-450); RED BLOOD COUNT 4.86 10^6/uL (4.00-5.40); WHITE BLOOD COUNT 7.3 10^3/uL (4.0-10.0)
[2018-10-15 14:15] LABS: HEMOGLOBIN A1c 5.7 %
[2018-10-15 14:19] LABS: ALBUMIN 4.1 GM/DL (3.2-5.2); ALT/SGPT 90 U/L (12-78); BILIRUBIN,TOTAL 0.4 MG/DL (0.2-1.0); BLOOD UREA NITROGEN 6 MG/DL (7-18); CALCIUM LEVEL 9.7 MG/DL (8.5-10.1); CARBON DIOXIDE LEVEL 26 MEQ/L (21-32); CHLORIDE LEVEL 107 MEQ/L (98-107); CHOLESTEROL LEVEL 113 MG/DL (<200); CHOLESTEROL RISK RATIO 3.424 (<5); CREATININE FOR GFR 0.74 MG/DL (0.55-1.30); GLOMERULAR FILTRATION RATE > 60.0 (>60); GLUCOSE, FASTING 84 MG/DL (70-100); HDL CHOLESTEROL 33 MG/DL (>40); LDL CHOLESTEROL 66 MG/DL (<100); NON-HDL-C 80 MG/DL; POTASSIUM SERUM 3.9 MEQ/L (3.5-5.1); SODIUM LEVEL 141 MEQ/L (136-145); TOTAL 25(OH) VITAMIN D 40.8 NG/ML (30.0-100.0); TOTAL PROTEIN 7.7 GM/DL (6.4-8.2); TRIGLYCERIDES LEVEL 70 MG/DL (<150)
== END ==
LOC: M LAB REF 13:12
PROVIDERS: ATTEND Nurse Practitioner Family
DX: Z13.9 Encounter for screening, unspecified (principal); R73.03 Prediabetes

== ENCOUNTER → 2019-01-08 | Outpatient (CLI) | payer OTHER | LOC: M LAB 10:09 | PROVIDERS: ATTEND Internal Medicine Gastroenterology | DX: R19.7 Diarrhea, unspecified (principal) ==

== ENCOUNTER → 2019-01-08 | Outpatient (CLI) | payer OTHER ==
--- NOTE | 2019-01-08 10:51 | REP ---
CT paranasal sinuses: 01/08/2019. Indication: Sinusitis. Comparison: 05/05/2018. Technique: Unenhanced axial images of the paranasal sinuses were performed with coronal reconstructions provided. Findings: No air-fluid levels or frothy secretions are present within the paranasal sinuses. No significant periosteal mucosal thickening is present. The right frontal sinus is under pneumatized. The sinonasal passageways are patent. There is no significant deviation of the nasal septum. No significant ocular, intraorbital or intracranial abnormalities are detected. The mastoid air cells are clear. Impression: No significant paranasal sinus mucosal disease by CT evaluation. Electronically Signed by Yuval Boyd DO 01/08/2019 10:44 A
== END ==
LOC: M RAD 10:23
PROVIDERS: ATTEND Specialist
DX: J31.0 Chronic rhinitis (principal); R51 Headache

== ENCOUNTER 2019-03-14 10:45 | Day surgery (SDC) | payer OTHER ==
[~2019-03-14] VITALS: Ht 157.5 cm; Wt 99.8 kg
[~2019-03-14 10:45] MED LIST changes: +DULO1CAP6 PO; +FERR325T16 PO; +LIDOCAINE 2% INJ 100 MG/5 ML SDV (FOR ANES.) As Ordered ONE; -LORA-674; +LORA-674 PO; +NAPR-885 PO; +NS 1,000 ML IV ONE; +OMEP-218 PO; +PROPOFOL 200 MG/20 ML VIAL As Ordered ONE; -RANI-280; +RANI-280 PO; -TRAZ-252; +TRAZ-252 PO; +VITA1CAP25 PO
[2019-03-14] MEDS ORDERED: PROPOFOL 200 MG/20 ML VIAL As Ordered ONE (13:06)
--- NOTE | 2019-03-14 13:22 | ROOR ---
Patient Name: Amelia Castorena Procedure Date: 03/14/2019 12:28 PM Date of : 1990 Age: 28 Room: [facility] Gender: Female Note Status: Finalized Procedure: Upper GI endoscopy Indications: Heartburn, Nausea with vomiting Providers: Orlin Toro MD Referring MD: Kala GIRON NP Requesting Provider: Medicines: Monitored Anesthesia Care Complications: No immediate complications. Procedure: Pre-Anesthesia Assessment: - Prior to the procedure, a History and Physical was performed, and patient medications and allergies were reviewed. The patient is competent. The risks and benefits of the procedure and the sedation options and risks were discussed with the patient. All questions were answered and informed consent was obtained. Patient identification and proposed procedure were verified by the physician, the nurse and the anesthesiologist in the procedure room. Mental Status Examination: normal. Airway Examination: normal oropharyngeal airway and neck mobility. Respiratory Examination: clear to auscultation. CV Examination: normal. Prophylactic Antibiotics: The patient does not require prophylactic antibiotics. Prior Anticoagulants: The patient has taken no previous anticoagulant or antiplatelet agents. ASA Grade Assessment: II - A patient with mild systemic disease. After reviewing the risks and benefits, the patient was deemed in satisfactory condition to undergo the procedure. The anesthesia plan was to use monitored anesthesia care (MAC). Immediately prior to administration of medications, the patient was re-assessed for adequacy to receive sedatives. The heart rate, respiratory rate, oxygen saturations, blood pressure, adequacy of pulmonary ventilation, and response to care were monitored throughout the procedure. The physical status of the patient was re-assessed after the procedure. The Endoscope was introduced through the mouth, and advanced to the second part of duodenum. The upper GI endoscopy was accomplished without difficulty. The patient tolerated the procedure well. Findings: Mucosal changes including ringed esophagus and white plaques were found in the middle third of the esophagus and in the lower third of the esophagus. Biopsies were obtained from the proximal and distal esophagus with cold forceps for histology of suspected eosinophilic esophagitis. Verification of patient identification for the specimen was done by the physician and nurse using the patient's name, date and medical record number. Estimated blood loss was minimal. Scattered moderate inflammation characterized by erosions, erythema, friability and granularity was found in the gastric antrum. Biopsies were taken with a cold forceps for Helicobacter pylori testing. The duodenal bulb and second portion of the duodenum were normal. Biopsies for histology were taken with a cold forceps for evaluation of celiac disease. Impression: - Esophageal mucosal changes suspicious for eosinophilic esophagitis. Biopsied. - Gastritis. Biopsied. - Normal duodenal bulb and second portion of the duodenum. Biopsied. Recommendation: - Patient has a contact number available for emergencies. The signs and symptoms of potential delayed complications were discussed with the patient. Return to normal activities tomorrow. Written discharge instructions were provided to the patient. - Resume previous diet. - Continue present medications. - Follow an antireflux regimen. - Await pathology results. - Telephone GI clinic for pathology results in 2 weeks. - Return to primary care physician. Orlin Toro MD Orlin Toro MD 03/14/2019 1:22:04 PM Electronically signed by Orlin Toro MD Number of Addenda: 0 Note Initiated On: 03/14/2019 12:28 PM Estimated Blood Loss: Estimated blood loss: none.
--- NOTE | 2019-03-14 13:35 | ROOR ---
Patient Name: Amelia Castorena Procedure Date: 03/14/2019 12:29 PM Date of : 1990 Age: 28 Room: [facility] Gender: Female Note Status: Finalized Procedure: Colonoscopy Indications: Chronic diarrhea Providers: Orlin Toro MD Referring MD: Kala GIRON NP Requesting Provider: Medicines: Monitored Anesthesia Care Complications: No immediate complications. Procedure: Pre-Anesthesia Assessment: - Prior to the procedure, a History and Physical was performed, and patient medications and allergies were reviewed. The patient is competent. The risks and benefits of the procedure and the sedation options and risks were discussed with the patient. All questions were answered and informed consent was obtained. Patient identification and proposed procedure were verified by the physician, the nurse and the anesthesiologist in the procedure room. Mental Status Examination: alert and oriented. Airway Examination: normal oropharyngeal airway and neck mobility. Respiratory Examination: clear to auscultation. CV Examination: normal. Prophylactic Antibiotics: The patient does not require prophylactic antibiotics. Prior Anticoagulants: The patient has taken no previous anticoagulant or antiplatelet agents. ASA Grade Assessment: II - A patient with mild systemic disease. After reviewing the risks and benefits, the patient was deemed in satisfactory condition to undergo the procedure. The anesthesia plan was to use monitored anesthesia care (MAC). Immediately prior to administration of medications, the patient was re-assessed for adequacy to receive sedatives. The heart rate, respiratory rate, oxygen saturations, blood pressure, adequacy of pulmonary ventilation, and response to care were monitored throughout the procedure. The physical status of the patient was re-assessed after the procedure. The Colonoscope was introduced through the anus and advanced to the terminal ileum, with identification of the appendiceal orifice and IC valve. The colonoscopy was performed without difficulty. The patient tolerated the procedure well. The quality of the bowel preparation was good. The terminal ileum, ileocecal valve, appendiceal orifice, and rectum were photographed. Scope insertion time was 3 minutes. Scope withdrawal time was 9 minutes. The total duration of the procedure was 12 minutes. Findings: The digital rectal exam findings include decreased sphincter tone. Pertinent negatives include no palpable rectal lesions. The terminal ileum appeared normal. Normal mucosa was found in the entire colon. Biopsies for histology were taken with a cold forceps from the right colon, left colon, transverse colon and rectosigmoid colon for evaluation of microscopic colitis. Verification of patient identification for the specimen was done by the physician and nurse using the patient's name, date and medical record number. Estimated blood loss was minimal. Non-bleeding external and internal hemorrhoids were found during retroflexion. The hemorrhoids were small. Impression: - Decreased sphincter tone found on digital rectal exam. - The examined portion of the ileum was normal. - Normal mucosa in the entire examined colon. Biopsied. - Non-bleeding external and internal hemorrhoids. Recommendation: - Patient has a contact number available for emergencies. The signs and symptoms of potential delayed complications were discussed with the patient. Return to normal activities tomorrow. Written discharge instructions were provided to the patient. - High fiber diet. - Continue present medications. - Await pathology results. - Repeat colonoscopy at age 51 for screening purposes. - - Do Kegel Exercises atleast 15 minutes daily. - Telephone GI clinic for pathology results in 2 weeks. - Return to primary care physician. Orlin Toro MD Orlin Toro MD 03/14/2019 1:35:10 PM Electronically signed by Orlin Toro MD Number of Addenda: 0 Note Initiated On: 03/14/2019 12:29 PM Estimated Blood Loss: Estimated blood loss was minimal.
[2019-03-14 13:58] VITALS: BP 119/62
== END 2019-03-14 14:04 | disposition home or self-care (01) ==
LOC: M OPP 10:45
PROVIDERS: ATTEND Internal Medicine Gastroenterology
DX: K62.89 Other specified diseases of anus and rectum (principal); K64.8 Other hemorrhoids; K52.9 Noninfective gastroenteritis and colitis, unspecified; R63.4 Abnormal weight loss; K22.8 Other specified diseases of esophagus; K29.70 Gastritis, unspecified, without bleeding; R12 Heartburn; R11.2 Nausea with vomiting, unspecified; F17.210 Nicotine dependence, cigarettes, uncomplicated; Z79.899 Other long term (current) drug therapy; Z88.0 Allergy status to penicillin; Z88.1 Allergy status to other antibiotic agents

== ENCOUNTER 2019-03-14 20:25 | Emergency (ER) | payer OTHER ==
[~2019-03-14] VITALS: Ht 157.5 cm; Wt 104.5 kg
[~2019-03-14 20:25] MED LIST changes: -LIDOCAINE 2% INJ 100 MG/5 ML SDV (FOR ANES.) As Ordered ONE; -NS 1,000 ML IV ONE; -PROPOFOL 200 MG/20 ML VIAL As Ordered ONE
[2019-03-14] MEDS ORDERED: GI COCKTAIL 50ML BTL(HYOSCYAMINE/MAALOX/LIDOCAINE VISCOUS)(1:3:1) PO ONE (22:45)
[2019-03-14 23:55] VITALS: BP 132/77
--- NOTE | 2019-03-15 08:43 | REP ---
Chest x-ray: Two views. History: Chest pain. Comparison study: August 28, 2017. Findings: EKG monitoring electrodes overlie the chest. The lungs are well inflated and clear. The pleural angles are sharp. Heart size is normal. No bony abnormalities appreciated. Impression: No active disease. Electronically Signed by Michel Gibbons MD 03/15/2019 08:34 A
--- NOTE | 2019-03-16 05:44 | ECGEPIP ---
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
== END 2019-03-14 23:58 | disposition home or self-care (01) ==
LOC: M ED 20:25
DX: Z98.890 Other specified postprocedural states (principal); R07.0 Pain in throat; K21.9 Gastro-esophageal reflux disease without esophagitis; F41.9 Anxiety disorder, unspecified; F32.9 Major depressive disorder, single episode, unspecified; E66.9 Obesity, unspecified; F17.200 Nicotine dependence, unspecified, uncomplicated; Z79.899 Other long term (current) drug therapy; Z88.0 Allergy status to penicillin; Z88.1 Allergy status to other antibiotic agents

== ENCOUNTER → 2019-04-08 | Outpatient (CLI) | payer OTHER ==
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
== END ==
LOC: M RAD 08:50
PROVIDERS: ATTEND Physician Assistant
DX: M47.892 Other spondylosis, cervical region (principal)

== ENCOUNTER 2019-05-01 17:42 | Emergency (ER) | payer OTHER ==
[~2019-05-01] VITALS: Ht 157.5 cm; Wt 108.4 kg
[2019-05-01] MEDS ORDERED: CELE1CAP9 (17:56)
[2019-05-01] MEDS ORDERED: ONDA4TAB6 PO (18:43)
[2019-05-01] MEDS ORDERED: ONDANSETRON 4MG/2ML VIAL (J2405) IV ONE (19:00)
[2019-05-01] MEDS ORDERED: NS 1,000 ML IV ONE (19:00)
[2019-05-01 19:38] LABS: BASO # 0.1 10^3/uL (0.0-0.2); BASO % 0.5 % (0.0-1.0); EOS # 0.1 10^3/uL (0.0-0.5); EOS % 0.7 % (0.0-3.0); HEMATOCRIT 39.8 % (36.0-47.0); HEMOGLOBIN 12.2 g/dl (12.0-15.5); LYMPH # 3.6 10^3/uL (1.5-5.0); LYMPH % 29.8 % (24.0-44.0); MEAN CORPUSCULAR HEMOGLOBIN 24.4 pg (27.0-33.0); MEAN CORPUSCULAR HGB CONC 30.7 g/dl (32.0-36.5); MEAN CORPUSCULAR VOLUME 79.8 fl (80.0-96.0); MONO # 0.7 10^3/uL (0.0-0.8); MONO % 5.9 % (0.0-5.0); NEUTROPHILS # 7.5 10^3/uL (1.5-8.5); NEUTROPHILS % 62.7 % (36.0-66.0); RED BLOOD COUNT 4.99 10^6/uL (4.00-5.40); WHITE BLOOD COUNT 11.9 10^3/uL (4.0-10.0)
[2019-05-01] MEDS ORDERED: ISOVUE-370 76% 100ML VIAL (Q9967) As Ordered ONE (19:40)
[2019-05-01 19:59] LABS: INFLUENZA A AMPLIFICATION NEGATIVE (NEGATIVE); INFLUENZA B AMPLIFICATION NEGATIVE (NEGATIVE)
[2019-05-01 20:02] LABS: ALBUMIN 4.1 GM/DL (3.2-5.2); BILIRUBIN,DIRECT 0.1 MG/DL (0.0-0.2); BILIRUBIN,TOTAL 0.3 MG/DL (0.2-1.0); TOTAL PROTEIN 8.2 GM/DL (6.4-8.2)
[2019-05-01] MEDS ORDERED: KETOROLAC 30 MG/ML VIAL (J1885) IV ONE (20:15)
--- NOTE | 2019-05-01 20:38 | REPVR ---
PROCEDURE INFORMATION: Exam: CT Abdomen And Pelvis With Contrast Exam date and time: 05/01/2019 7:47 PM Age: 29 years old Clinical indication: Abdominal pain; Generalized; Additional info: Rlq pain, vomiting TECHNIQUE: Imaging protocol: Computed tomography of the abdomen and pelvis with intravenous contrast. Radiation optimization: All CT scans at this facility use at least one of these dose optimization techniques: automated exposure control; mA and/or kV adjustment per patient size (includes targeted exams where dose is matched to clinical indication); or iterative reconstruction. Contrast material: ISOVUE 370; Contrast volume: 100 ml; Contrast route: IV; COMPARISON: CT ABD/PEL W/IV CONTRAST ONLY 01/30/2018 2:50 PM FINDINGS: Liver: There is mild diffuse decrease in hepatic parenchymal density, consistent with mild steatosis. Gallbladder and bile ducts: There has been a cholecystectomy. Pancreas: Normal. No ductal dilation. Spleen: Normal. No splenomegaly. Adrenals: Normal. No mass. Kidneys and ureters: Normal. No hydronephrosis. Stomach and bowel: Unremarkable. No obstruction. No mucosal thickening. Appendix: The appendix is within normal limits. There is no appendiceal enlargement, periappendiceal inflammatory changes or abscess. Intraperitoneal space: Unremarkable. No free air. No significant fluid collection. Vasculature: Unremarkable. No abdominal aortic aneurysm. Lymph nodes: Unremarkable. No enlarged lymph nodes. Bladder: Unremarkable as visualized. Reproductive: 2.3 x 4 cm left adnexal cyst likely functional. Bones/joints: Unremarkable. No acute fracture. Soft tissues: Unremarkable. IMPRESSION: 1. There has been a cholecystectomy. 2. There is mild diffuse decrease in hepatic parenchymal density, consistent with mild steatosis. 3. The appendix is within normal limits. There is no appendiceal enlargement, periappendiceal inflammatory changes or abscess. Electronically signed by: Dom Knight On 05/01/2019 20:37:07 PM
[2019-05-01] MEDS ORDERED: DICYCLOMINE 10 MG CAP PO ONE (21:00)
[2019-05-01] MEDS ORDERED: METOCLOPRAMIDE INJ 10MG/2ML VIAL (J2765) IV ONE (21:30)
[2019-05-01 22:41] VITALS: BP 128/64
[2019-05-01] MEDS ORDERED: REGL10TA6 PO (22:48)
== END 2019-05-01 22:59 | disposition home or self-care (01) ==
LOC: M ED 17:42
DX: D72.829 Elevated white blood cell count, unspecified (principal); R11.2 Nausea with vomiting, unspecified; K21.9 Gastro-esophageal reflux disease without esophagitis; F17.200 Nicotine dependence, unspecified, uncomplicated; Z79.899 Other long term (current) drug therapy; Z88.0 Allergy status to penicillin; Z88.1 Allergy status to other antibiotic agents
CPT/HCPCS: 74177; 80047; 80076; 83690; 84702; 85025; 87502; 96361; 96374; 96375; 99284; J1885; J2405; J2765; Q9967

== ENCOUNTER → 2019-06-30 | Outpatient (REF) | payer OTHER ==
[~2019-06-30] MED LIST changes: +CELE1CAP9
[2019-06-30 14:26] LABS: BASO % 0.6 % (0.0-1.0); EOS # 0.1 10^3/uL (0.0-0.5); HEMATOCRIT 38.1 % (36.0-47.0); HEMOGLOBIN 11.8 g/dl (12.0-15.5); LYMPH # 2.4 10^3/uL (1.5-5.0); LYMPH % 34.3 % (24.0-44.0); MEAN CORPUSCULAR HEMOGLOBIN 24.8 pg (27.0-33.0); MEAN CORPUSCULAR VOLUME 80.2 fl (80.0-96.0); MONO # 0.5 10^3/uL (0.0-0.8); MONO % 7.6 % (0.0-5.0); NEUTROPHILS % 56.4 % (36.0-66.0); PLATELET COUNT, AUTOMATED 201 10^3/uL (150-450); RED BLOOD COUNT 4.75 10^6/uL (4.00-5.40)
[2019-06-30 14:37] LABS: ALBUMIN 4.1 GM/DL (3.2-5.2); ALT/SGPT 29 U/L (12-78); BILIRUBIN,TOTAL 0.4 MG/DL (0.2-1.0); BLOOD UREA NITROGEN 10 MG/DL (7-18); CALCIUM LEVEL 8.8 MG/DL (8.5-10.1); CARBON DIOXIDE LEVEL 25 MEQ/L (21-32); CHLORIDE LEVEL 109 MEQ/L (98-107); CREATININE FOR GFR 0.81 MG/DL (0.55-1.30); GLOMERULAR FILTRATION RATE > 60.0 (>60); GLUCOSE, FASTING 80 MG/DL (70-100); POTASSIUM SERUM 4.1 MEQ/L (3.5-5.1); SODIUM LEVEL 140 MEQ/L (136-145); TOTAL PROTEIN 7.9 GM/DL (6.4-8.2)
== END ==
LOC: M LAB REF 12:36
PROVIDERS: ATTEND Family Medicine
DX: R53.83 Other fatigue (principal)

== ENCOUNTER → 2020-02-16 | Outpatient (REF) | payer OTHER ==
[2020-02-16 18:46] LABS: APPEARANCE, URINE HAZY (CLEAR); BACTERIA, URINE AUTO 1+ (NEGATIVE); BILIRUBIN, URINE AUTO NEGATIVE (NEGATIVE); BLOOD, URINE BLOOD NEGATIVE (NEGATIVE); COLOR, URINE YELLOW (YELLOW); GLUCOSE, URINE (UA) AUTO NEGATIVE (NEGATIVE); KETONE, URINE AUTO NEGATIVE (NEGATIVE); LEUKOCYTE ESTERASE, URINE AUTO 3+ (NEGATIVE); NITRITE, URINE AUTO NEGATIVE (NEGATIVE); PROTEIN, URINE AUTO NEGATIVE (NEGATIVE); RBC, URINE AUTO 8 /HPF (0-3); SPECIFIC GRAVITY URINE AUTO 1.017 (1.002-1.035); SQUAMOUS EPITHELIAL CELL UR AU 4 /HPF (0-6); UROBILINOGEN, URINE AUTO 0.2 mg/dL (0.0-2.0); WBC, URINE AUTO 37 /HPF (0-3)
== END ==
LOC: M LAB REF 16:42
PROVIDERS: ATTEND Nurse Practitioner Family
DX: R30.9 Painful micturition, unspecified (principal)

== ENCOUNTER → 2023-06-01 | Outpatient (REF) | payer OTHER ==
[~2023-06-01] MED LIST changes: -CEFD1CAP8; +CEFD1CAP9; +CELE0.09; -CELE1CAP9; +DICY-61 PO; -DICY10CA13 PO; +FERR324T21 PO; -FERR325T16 PO; +LORA-1041 PO; -LORA-674 PO; +OMEP-173 PO; -OMEP-218 PO
[2023-06-01 17:30] LABS: APPEARANCE, URINE CLEAR (CLEAR); BACTERIA, URINE AUTO NEGATIVE (NEGATIVE); BILIRUBIN, URINE AUTO NEGATIVE (NEGATIVE); BLOOD, URINE BLOOD NEGATIVE (NEGATIVE); COLOR, URINE YELLOW (YELLOW); GLUCOSE, URINE (UA) AUTO NEGATIVE (NEGATIVE); KETONE, URINE AUTO NEGATIVE (NEGATIVE); LEUKOCYTE ESTERASE, URINE AUTO TRACE (NEGATIVE); NITRITE, URINE AUTO NEGATIVE (NEGATIVE); PROTEIN, URINE AUTO NEGATIVE (NEGATIVE); RBC, URINE AUTO 0 /HPF (0-3); SQUAMOUS EPITHELIAL CELL UR AU 3 /HPF (0-6); UROBILINOGEN, URINE AUTO 0.2 mg/dL (0.0-2.0); WBC, URINE AUTO 1 /HPF (0-3)
== END ==
LOC: M SMT 16:58
PROVIDERS: ATTEND Urology
DX: N39.0 Urinary tract infection, site not specified (principal)